=== PATIENT | female | born 1985 | race Caucasian/White ===

== ENCOUNTER 2020-03-29 14:54 | Emergency (ER) | payer OTHER, SELFPAY ==
--- NOTE | 2020-03-29 18:03 | PC.NURSE ---
CALLED AT 1715. PT NOT IN [facility]. TRIAGE NURSE STATES CALLED ALSO AND NO RESPONSE. LWT.
== END 2020-03-29 18:22 | disposition left against medical advice (07) ==
PROVIDERS: Emergency Provider Emergency Medicine
DX: M79.603 Pain in arm, unspecified (principal)
CPT/HCPCS: 99281

== ENCOUNTER 2021-03-05 07:17 | Outpatient (REF) | payer OTHER, SELFPAY ==
--- NOTE | ~2021-03-05 | XR_ITS ---
EXAMINATION: XR SHOULDER, RIGHT CLINICAL INFORMATION: Pain in the shoulder COMPARISON: None TECHNIQUE: Two views of the right shoulder. FINDINGS: No fracture or dislocation. The glenohumeral joint is well aligned. The acromioclavicular joint is intact. The visualized lung is clear. The visualized ribs are intact. XR/XR shoulder RT min 2V IMPRESSION: Normal right shoulder.
== END 2021-03-05 07:18 | disposition home or self-care (01) ==
LOC: HO.HOSX 07:17
PROVIDERS: Visit Provider Physician Assistant
DX: M75.21 Bicipital tendinitis, right shoulder (principal)
CPT/HCPCS: 73030; 99202

== ENCOUNTER 2021-03-10 11:16 | Outpatient (REF) | payer OTHER, SELFPAY ==
--- NOTE | ~2021-03-10 | XR_ITS ---
EXAMINATION: XR KNEE, RIGHT CLINICAL INFORMATION: Right knee pain. COMPARISON: February 05, 2009 TECHNIQUE: Four views of the right knee. FINDINGS: There is no evidence of acute fracture or dislocation of the right knee. No right knee effusion. Right knee joint spaces are maintained. Prominent patella spur site of insertion of quadriceps tendon present. XR/XR knee RT 4V IMPRESSION: Patella spur. Otherwise unremarkable right knee study.
== END 2021-03-10 11:17 | disposition home or self-care (01) ==
LOC: HO.HMGCX 11:16
PROVIDERS: PCP Internal Medicine; Visit Provider Internal Medicine
DX: M25.561 Pain in right knee (principal)
CPT/HCPCS: 73564

== ENCOUNTER 2021-03-23 16:33 | Outpatient (REF) | payer OTHER, SELFPAY ==
--- NOTE | ~2021-03-23 | MR_ITS ---
EXAMINATION: MR SHOULDER WITHOUT CONTRAST, RIGHT CLINICAL INFORMATION: Right shoulder pain radiating into biceps. COMPARISON: Right shoulder radiographs dated 03/05/2021. TECHNIQUE: MRI of the shoulder without contrast was performed on a high-field scanner. FINDINGS: ROTATOR CUFF: There is somewhat linear, lobulated low T1/T2 signal within the distal aspect of the supraspinatus tendon measuring 0.4 x 0.4 x 0.9 cm (axial image 09/23), consistent with calcific tendinitis. Mild associated tendinosis without a measurable tendon defect. No muscle atrophy or fatty infiltration. BICEPS: Normal. CORACOACROMIAL ARCH: The undersurface of the acromion is flat with no subacromial spur. The acromioclavicular joint is normal. LABRUM/CAPSULE: Normal. GLENOHUMERAL JOINT/MARROW: Normal. MR/MR shoulder RT wo con IMPRESSION: Mild distal supraspinatus calcific tendinitis with associated tendinosis. No measurable tendon defect.
== END 2021-03-23 16:34 | disposition home or self-care (01) ==
LOC: HO.MRI 16:33
PROVIDERS: Visit Provider Physician Assistant
DX: M25.611 Stiffness of right shoulder, not elsewhere classified (principal); M25.511 Pain in right shoulder; M75.21 Bicipital tendinitis, right shoulder
CPT/HCPCS: 73221

== ENCOUNTER → 2021-04-05 10:29 | Outpatient (BNVA) | payer OTHER, SELFPAY | PROVIDERS: PCP Internal Medicine; Visit Provider Physician Assistant | DX: M75.101 Unspecified rotator cuff tear or rupture of right shoulder, not specified as traumatic (principal); M75.31 Calcific tendinitis of right shoulder | CPT/HCPCS: 99212; J1040 ==

== ENCOUNTER → 2021-04-06 15:35 | Outpatient (BNVA) | payer OTHER, MEDICAID, SELFPAY | PROVIDERS: PCP Internal Medicine; Visit Provider Advanced Practice Midwife ==

== ENCOUNTER → 2021-04-08 10:45 | Outpatient (BNVA) | payer OTHER, MEDICAID, SELFPAY | PROVIDERS: Visit Provider Orthopaedic Surgery ==

== ENCOUNTER 2021-04-28 11:00 | Outpatient (RCR) | payer OTHER, MEDICAID, SELFPAY ==
--- NOTE | 2021-04-21 14:57 | MHC.PT.EP ---
[facility] [place] Office [place] Office [place] Office [address] Rubens Cardona [address] [phone] F: [phone] F: [phone] F: [phone] F: [phone] Physical Therapy Plan of Care Date of Evaluation: Date of Surgery: n/a Diagnosis: calcific tendonitis of R shoulder Assessment: Patient is a 36 year old female presenting to PT with complaints of pain in her R shoulder. Pt reports onset of pain began 02/17/2021 due to a lifting injury at work. She presents today with impairments in pain, R shoulder ROM, and R shoulder strength. 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 Pt expresses custodial goal of being pain free, and is motivated to work towards this in PT. Clinical presentation is somewhat limited due to pt refusing to complete certain portions of the exam however MRI findings are most consistent with signs and sx associated with calcific tendonitis and pt will benefit from skilled PT to address the following problems and impairments noted upon evaluation: pain, R shoulder ROM, and R shoulder strength. These problems limit the patient with the following functional activities: reaching, lifting, ADLs, work. The prescribed treatment plan of care is medically necessary. Co-morbidities of none were identified and taken into considerations of plan of care. Pt was educated on HEP, role of PT, prognosis, POC. Frequency and Duration: The patient will be seen 2 x week x 4 weeks Short Term Goals: Pt will demonstrate improved AROM of shoulder in all directions by 20 degrees in 2 weeks. Pt will demonstrate reduced pain at rest to <5/10 in 2 weeks for improved QOL. Pt will demonstrate active muscle contraction against resistance in 2 weeks. Custodial Goals: Pt will demonstrate improved SPADI score by 13 points in 4 weeks for improved tolerance to functional mobility. Pt will demonstrate ability to reach and lift with pain<3/10 in 4 weeks for return to PLOF. Pt will demonstrate ability to complete ADLs with min to no pain in 4 weeks for return to PLOF. Treatment Plan: Modalities to reduce pain, spasms and effusion. Manual therapy to restore motion and function. Therapeutic exercise to improve strength and flexibility. Neuromuscular re-education for posture and balance. Therapeutic activities to return to functional activities of daily living. Electronically signed by: Charlene Balderas, PT, DPT, ATC Please sign and return to therapist. Thank you for your referral.
--- NOTE | 2021-05-12 11:34 | MHC.PT.DC ---
[facility] [place] Office [place] Office [place] Office [address] Rubens Cardona [address] [phone] F: [phone] F: [phone] F: [phone] F: [phone] Physical Therapy Discharge Report Diagnosis: calcific tendonitis of R shoulder Date of Surgery: n/a Date of Evaluation: 04/21/21 Date of Discharge: 05/12/21 Treatments to Date: 2 Cancellations to Date: 3 No Shows to Date: 2 Discharge Status: Visit Non-compliance Discharge Summary: Pt has failed to comply with [facility] attendance policy and no showed her last 2 scheduled appts. Pt status currently unknown at this time. Electronically signed by: Charlene Balderas, PT, DPT, ATC Please sign and return to therapist. Thank you for your referral.
== END 2021-05-12 11:34 | disposition home or self-care (01) ==
LOC: HO.PTCHIC 11:00
PROVIDERS: PCP Internal Medicine; Visit Provider Physician Assistant
DX: M22.2X1 Patellofemoral disorders, right knee (principal); M75.31 Calcific tendinitis of right shoulder; M75.101 Unspecified rotator cuff tear or rupture of right shoulder, not specified as traumatic
CPT/HCPCS: 97110; 97161

== ENCOUNTER → 2021-05-17 09:35 | Outpatient (BNVA) | payer OTHER, MEDICAID, SELFPAY | PROVIDERS: PCP Internal Medicine; Visit Provider Physician Assistant | DX: M75.31 Calcific tendinitis of right shoulder (principal) | CPT/HCPCS: 99212 ==

== ENCOUNTER 2021-06-03 10:00 | Outpatient (RCR) | payer OTHER, MEDICAID, SELFPAY ==
--- NOTE | 2021-05-19 10:59 | MHC.PT.EP ---
[facility] [place] Office [place] Office [place] Office [address] [phone] F: [phone] F: [phone] F: [phone] F: [phone] Physical Therapy Plan of Care Date of Evaluation: Date of Surgery: n/a Diagnosis: R shoulder pain/tendinitis Assessment: Patient is a 36 year old R handed female who presents with s/s consistent with R shoulder pain, tendinitis. 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 Patient past medical history is fairly unremarkable. Current impairments include pain, posture, ROM, strength, activity tolerance and functional mobility. Functional limitations include decreased ability to use RUE for all functional activities. Patient is motivated with good rehab potential. Skilled PT will address impairments and functional limitations in order to achieve goals. Frequency and Duration: The patient will be seen 2x/week for 5 weeks Short Term Goals: I with HEP - 2 weeks AROM flexion to 40, ER to 15, Abd to 25 - 2 weeks Able to participate in UBE - 3 weeks Water Technician Goals: Flex/ABd > 90 - 5 weeks ER/IR arc to 90 - 5 weeks SPADI 80 or less - 5 weeks Treatment Plan: Modalities to reduce pain, spasms and effusion. Manual therapy to restore motion and function. Therapeutic exercise to improve strength and flexibility. Neuromuscular re-education for posture and balance. Therapeutic activities to return to functional activities of daily living. Electronically signed by: Chandler Driver, PT Please sign and return to therapist. Thank you for your referral.
--- NOTE | 2021-12-23 08:51 | MHC.PT.DC ---
[facility] [place] Office [place] Office [place] Office [address] Rubens Cardona [address] [phone] F: [phone] F: [phone] F: [phone] F: [phone] Physical Therapy Discharge Report Diagnosis: R shoulder pain/tendinitis Date of Surgery: n/a Date of Evaluation: 05/19/21 Date of Discharge: 07/26/21 Treatments to Date: 3 Cancellations to Date: No Shows to Date: Discharge Status: Patient Elected to Stop Discharge Summary: 06/03: Pt presents with protective posturing; she reports she feels worse when she leaves therapy and was reminded that she has only has her initial evaluation and one treatment session. Pt encouraged to attend therapy w/o difficult to remove UE clothing for modalities trial NV for pain management. Poor macario for activities continues though weight shifting ROM PROM is more tolerable than pendulum, felipa. Pt reports she has tried her home exercises though could not remember them. Affed weight shifting Prom flexion and abd as well as scap retract iso to HEP. Pt reports ortho follow up in 2 weeks. 05/26/21: low ex tolerance due to perceived pain. educated in potential response to ex. continue to progress as tolerated. Patient is a 36 year old R handed female who presents with s/s consistent with R shoulder pain, tendinitis. 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 Patient past medical history is fairly unremarkable. She currently presents with s/s to allodynia. Current impairments include pain, posture, ROM, strength, activity tolerance and functional mobility. Functional limitations include decreased ability to use RUE for all functional activities. Patient is motivated with good rehab potential. Skilled PT will address impairments and functional limitations in order to achieve goals. Electronically signed by: Chandler Driver, PT Please sign and return to therapist. Thank you for your referral.
== END 2021-12-23 08:52 | disposition home or self-care (01) ==
LOC: HO.PTCHIC 10:00
PROVIDERS: PCP Internal Medicine; Visit Provider Physician Assistant
DX: M75.31 Calcific tendinitis of right shoulder (principal); M75.101 Unspecified rotator cuff tear or rupture of right shoulder, not specified as traumatic
CPT/HCPCS: 97110; 97161

== ENCOUNTER → 2021-06-14 10:51 | Outpatient (BNVA) | payer OTHER, MEDICAID, SELFPAY | PROVIDERS: PCP Internal Medicine; Visit Provider Orthopaedic Surgery | DX: M75.31 Calcific tendinitis of right shoulder (principal) | CPT/HCPCS: 99212 ==

== ENCOUNTER 2022-10-21 12:34 | Outpatient (AMB) | payer OTHER, SELFPAY ==
--- NOTE | 2022-10-21 12:36 | A.OFFPC_ITS ---
Vital Signs 10/21/22 12:39 Height 5 ft 1 in Weight 111 lb BMI 21.0 BP 92/54 L Blood Pressure Location Lt brachial Position Sitting Pulse 75 Pulse Source Pulse Oximeter Pulse Oximetry (%) 96 Oxygen Delivery Method Room Air Intake Visit Reasons: right side Back Pain Allergies lamotrigine [From LAMICTAL] Allergy (Severe, Verified 10/21/22 12:39) HIVES Medication List - Last Reconciled 10/21/22 by Tori Vines MD No Known Home Meds Tobacco use date assessed: 10/21/22 Dental Screening Dental Screen Date: 10/21/22 Did you have a dental visit in the last 12 months?: Yes Did you have a dental problem in the last 6 months where you did not have access to dental care?: No Was dental information given to patient?: Patient has dentist HPI right side Back Pain HPI Details Patient is a 37-year-old female who was last seen last year came in today for an acute problem Patient has been having pain lower back on the right side for the past few days when she lays down at night. Pain is nonradiating. On examination she is tender over right sacroiliac joint I have ordered x-ray of her joint Patient has not taken any pain medications she has Aleve and ibuprofen at home she will start taking either for next 2 weeks and get back to me. If not better we will order physical therapy. 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 How often do you have a drink containing alcohol?: Monthly or less 2. How many drinks containing alcohol do you have on a typical day when you are drinking?: 1 or 2 Total Score: 1 Score Reviewed/Action Taken: Yes CATHY-7 AMB Questionnaire CATHY-7 Date CATHY - 7 assessed: 03/10/21 Source: Developed by DrsOlga Galindo, Ana Laura Alberts, Damian Hagen and colleagues, with an educational lincoln from [employer]. Review of Systems Const All systems reviewed & are unremarkable except as noted in HPI and below Physical exam (Primary Care) Vital Signs: Last Vital Signs Pulse 75 10/21/22 12:39 BP 92/54 L 10/21/22 12:39 Pulse Ox 96 10/21/22 12:39 Oxygen Delivery Method Room Air 10/21/22 12:39 BMI result Body Mass Index 21.0 Tobacco/Smoking Status: Tobacco use Status Tobacco use date assessed 10/21/22 10/21/22 12:38 Patient Tobacco Use Status Former Tobacco user 10/21/22 12:38 Tobacco use type Cigarette 10/21/22 12:38 e-Cigarette/Vaping Use Never Used 10/21/22 12:38 Thrive Assessment: Date of Thrive Assessment Date Thrive assessed 03/10/21 10/21/22 12:38 Const General: no acute distress Orientation/consciousness: patient oriented x3 Eyes General: appearance normal, both eyes and all related structures Resp Effort & Inspection: normal respiratory effort and able to speak in complete sentences Auscultation: clear to auscultation bilaterally Back/Spine/Pelvis Back/spine/pelvis image: 1. Tender to pressure, range of motion intact right leg negative bilateral neuro nonfocal Neuro General: patient oriented x3 Psych Mental Status: mental status grossly normal Assessment and Plan Assessment & Plan (1) Sacroiliitis: Code(s): M46.1 - Sacroiliitis, not elsewhere classified Plan Patient is a 37-year-old female who was last seen last year came in today for an acute problem Patient has been having pain lower back on the right side for the past few days when she lays down at night. Pain is nonradiating. On examination she is tender over right sacroiliac joint I have ordered x-ray of her joint Patient has not taken any pain medications she has Aleve and ibuprofen at home she will start taking either for next 2 weeks and get back to me. If not better we will order physical therapy. Orders: Orders XR sacroiliac joint min 3V Today M46.1 - Sacroiliitis, not elsewhere classified Coding Level of Care Code Est Pt Level 3 (42322) Diagnoses Sacroiliitis M46.1
[2022-10-21 12:39] VITALS: BP 92/54; PULSE 75; O2SAT 96; BMI 21.0
== END 2022-10-21 13:15 | disposition home or self-care (01) ==
PROVIDERS: PCP Internal Medicine; Visit Provider Internal Medicine
DX: M46.1 Sacroiliitis, not elsewhere classified (principal)
CPT/HCPCS: 99213

== ENCOUNTER 2022-10-21 12:53 | Outpatient (REF) | payer OTHER, SELFPAY ==
--- NOTE | ~2022-10-21 | XR_ITS ---
EXAMINATION: XR SACROILIAC JOINTS CLINICAL INFORMATION: Sacroiliitis. COMPARISON: None available. TECHNIQUE: 3 views of the sacroiliac joints FINDINGS: No evidence of displaced fractures or malalignment. SI joints are symmetric with minimal associated sclerosis. No erosive changes. No abnormal soft tissue calcifications. IUD noted in the pelvis. XR/XR sacroiliac joint min 3V IMPRESSION: 1. No acute fractures or malalignment. 2. Symmetric SI joints with minimal sclerosis.
== END 2022-10-21 12:54 | disposition home or self-care (01) ==
LOC: HO.HMGCX 12:53
PROVIDERS: PCP Internal Medicine; Visit Provider Internal Medicine
DX: M46.1 Sacroiliitis, not elsewhere classified (principal)
CPT/HCPCS: 72202

== ENCOUNTER 2023-05-04 14:43 | Outpatient (AMB) | payer OTHER, SELFPAY ==
[2023-05-04 14:52] VITALS: BP 116/68; PULSE 71; TEMP 36.1; O2SAT 96; BMI 23.4
--- NOTE | 2023-05-04 14:52 | MHC.OFFWIV ---
Intake Vital Signs 05/04/23 14:52 Height 5 ft 1 in Weight 124 lb BMI 23.4 BP 116/68 Blood Pressure Location Lt brachial Position Sitting Pulse 71 Pulse Source Pulse Oximeter Temp 97.0 F Temp Source Temporal Artery Scan Pulse Oximetry (%) 96 Oxygen Delivery Method Room Air Intake Visit Reasons: EP 4 days pain RT breast Intake Note: pt is here today for pain rt breast started 4 days ago Patient Tobacco Use Status: Former Tobacco user Allergies lamotrigine [From LAMICTAL] Allergy (Severe, Verified 05/04/23 14:53) HIVES Do you need a note to return to daycare/school/sports/work: Yes HPI HPI Comments History of Present Illness Details 38 y/o female patient presents to walk in clinic with c/o right breast pain x 4 days now. Describes the pain as sharp on/off. Denies lumps or lesions. Denies CP, SOB or wheezing. Reports h/o right breast cyst with WNL Mammo/Ultrasound. 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 No tenderness on palpation. Chest palpation & inspection: normal inspection of the chest Breast/axilla inspection: normal inspection of the breasts and normal inspection of the axillae Breast/axilla palpation: normal palpation of the breasts, normal palpation of the axillae and no axillary lymphadenopathy Assessment & Plan Assessment & Plan (1) Breast pain, right: Code(s): N64.4 - Mastodynia Plan: - Apply heat pads for relief - Acetaminophen for pain relief - Will continue to monitor - h/o right breast cyst - No h/o breast CA Medications: New acetaminophen 1,000 mg (2 x 500 mg) PO Q6H PRN 30 caps 0RF Right breast pain N64.4 - Mastodynia Coding Level of Care Code Est Pt Level 3 (82732) Diagnoses Breast pain, right N64.4 Time Spent (min) 15
== END 2023-05-04 15:57 | disposition home or self-care (01) ==
PROVIDERS: PCP Internal Medicine; Visit Provider Nurse Practitioner Family
DX: N64.4 Mastodynia (principal)
CPT/HCPCS: 99213

== ENCOUNTER 2023-07-14 14:48 | Outpatient (AMB) | payer OTHER, SELFPAY ==
--- NOTE | 2023-07-14 14:46 | MHC.PC.OV ---
Intake Visit Reasons: Lower back pain radiating into legs [phone] Allergies lamotrigine [From LAMICTAL] Allergy (Severe, Verified 07/14/23 14:46) HIVES Medication List - Last Reconciled 07/14/23 by Tori Vines MD acetaminophen 1,000 mg (2 x 500 mg) PO Q6H PRN diclofenac sodium mg PO Tobacco use date assessed: 07/14/23 Dental Screening Dental Screen Date: 07/14/23 Did you have a dental visit in the last 12 months?: Yes Did you have a dental problem in the last 6 months where you did not have access to dental care?: No Was dental information given to patient?: Patient has dentist HPI Lower back pain radiating into legs [phone] HPI Details This is a telemedicine video conference Patient is 38-year-old female who has been having back pain off and on since January of last year Patient says that initially it was at night mostly and she was getting some relief with ibuprofen And then it started to get worse and started radiating to her right leg To the point that she is now having difficulty walking and feeling weak in her right leg with tingling in her foot Patient says that symptoms are getting worse and she is not even able to do much at home She was in emergency room yesterday [facility], After evaluation patient was discharged with a script of diclofenac that she is taking without any relief Patient says that x-rays were not done I have ordered x-ray as well as MRI of lumbar spine I have also sent Medrol Dosepak for the patient Further management after the imaging reports There is no bowel or bladder issues [facility] Medical History Ovarian cyst Family History Other Substance use disorder Social History Housing: House Patient Tobacco Use Status: Former Tobacco user Tobacco use type: Cigarette Years Smoked: 13 years e-Cigarette/Vaping Use: Never Used Current occupational status: employed 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 Miguel Galindo, Ana Laura Alberts, Damian Hagen and colleagues, with an educational lincoln from [employer]. Review of Systems Const Denies chills and Denies fever(s) ENT Denies epistaxis and Denies nasal discharge Card Denies chest pain Resp Denies chest congestion, Denies cough and Denies hemoptysis GI Denies diarrhea and Denies nausea Skin/Breast Denies rash Neuro Reports no additional complaints Psych Reports no additional complaints Endo Reports no additional complaints Physical exam (Primary Care) Tobacco/Smoking Status: Tobacco use Status Tobacco use date assessed 07/14/23 07/14/23 14:50 Patient Tobacco Use Status Former Tobacco user 07/14/23 14:47 Tobacco use type Cigarette 07/14/23 14:47 e-Cigarette/Vaping Use Never Used 07/14/23 14:47 Thrive Assessment: Date of Thrive Assessment Date Thrive assessed 03/10/21 07/14/23 14:47 Telehealth Telehealth Location of provider rendering services: practice address Location of patient: address on file Patient Identification confirmed using: Name, : Yes Telehealth method: video Patient verbally consented to treatment: Yes Patient verbally consented to billing insurance company: Yes Patient informed of any privacy concerns related to visit: Yes Assessment and Plan Assessment & Plan (1) Right lumbar radiculitis: Code(s): M54.16 - Radiculopathy, lumbar region (2) Weakness of right leg: Code(s): R29.898 - Other symptoms and signs involving the musculoskeletal system (3) Paresthesia of right leg: Code(s): R20.2 - Paresthesia of skin Plan This is a telemedicine video conference Patient is 38-year-old female who has been having back pain off and on since January of last year Patient says that initially it was at night mostly and she was getting some relief with ibuprofen And then it started to get worse and started radiating to her right leg To the point that she is now having difficulty walking and feeling weak in her right leg with tingling in her foot Patient says that symptoms are getting worse and she is not even able to do much at home She was in emergency room yesterday [facility], After evaluation patient was discharged with a script of diclofenac that she is taking without any relief Patient says that x-rays were not done I have ordered x-ray as well as MRI of lumbar spine I have also sent Medrol Dosepak for the patient Further management after the imaging reports There is no bowel or bladder issues Orders: Orders XR lumbar spine 2-3V Today M54.16 - Radiculopathy, lumbar region, R20.2 - Paresthesia of skin, R29.898 - Other symptoms and signs involving the musculoskeletal system MR lumbar spine wo con Today M54.16 - Radiculopathy, lumbar region, R20.2 - Paresthesia of skin, R29.898 - Other symptoms and signs involving the musculoskeletal system Medications: New methylprednisolone (Medrol (Clay)) PO PER PKG DIR 21 ea 0RF 6 days Coding Level of Care Code Tele Est Pt Level 4 (54543) Diagnoses Right lumbar radiculitis M54.16 Weakness of right leg R29.898 Paresthesia of right leg R20.2 Time Spent (min) 30 Comment Reviewing hospital note/[id number] with patient/charting/ordering meds/ordering imaging
== END 2023-07-14 16:34 | disposition home or self-care (01) ==
LOC: HO.HMGC 14:48
PROVIDERS: PCP Internal Medicine; Visit Provider Internal Medicine
DX: M54.16 Radiculopathy, lumbar region (principal); R29.898 Other symptoms and signs involving the musculoskeletal system; R20.2 Paresthesia of skin
CPT/HCPCS: 99214

== ENCOUNTER 2023-07-14 15:46 | Outpatient (REF) | payer OTHER, SELFPAY ==
--- NOTE | ~2023-07-14 | XR_ITS ---
EXAMINATION: XR LUMBOSACRAL SPINE CLINICAL INFORMATION: Radiculopathy. Lumbar region. COMPARISON: None available. TECHNIQUE: Three views of the lumbosacral spine. FINDINGS: 5 nonrib-bearing lumbar vertebral bodies are visualized. Alignment is within normal limits. Lumbar vertebral body heights and disc spaces are well-maintained. Sacroiliac joints are symmetric. IUD projects over the midline pelvis. Suspected 6 mm right renal calculus. XR/XR lumbar spine 2-3V IMPRESSION: 1. Unremarkable radiographs of the lumbar spine. 2. Suspected 6 mm right renal calculus.
== END 2023-07-14 15:47 | disposition home or self-care (01) ==
LOC: HO.HMGCX 15:46
PROVIDERS: PCP Internal Medicine; Visit Provider Internal Medicine
DX: M54.16 Radiculopathy, lumbar region (principal); R29.898 Other symptoms and signs involving the musculoskeletal system; R20.2 Paresthesia of skin
CPT/HCPCS: 72100

== ENCOUNTER 2023-07-20 08:35 | Outpatient (AMB) | payer OTHER, SELFPAY ==
--- NOTE | 2023-07-20 09:28 | A.OFFPC_ITS ---
Intake Visit Reasons: Back pain~ [phone] Allergies lamotrigine [From LAMICTAL] Allergy (Severe, Verified 07/20/23 09:28) HIVES diclofenic Adverse Reaction (Uncoded 07/20/23 10:12) Abdominal Pain Medication List - Last Reconciled 07/20/23 by Tori Vines MD acetaminophen 1,000 mg (2 x 500 mg) PO Q6H PRN methylprednisolone (Medrol (Clay)) PO PER PKG DIR 6 days Tobacco use date assessed: 07/14/23 Dental Screening Dental Screen Date: 07/14/23 HPI Back pain~ [phone] HPI Details Patient is 38-year-old female this is a follow-up appointment on back pain She continued to have pain in her back radiating to right leg Patient had x-ray of her back done, which showed 6 mm right-sided renal calculi I have placed a referral for her to see urologist, meanwhile she is to push lot of fluids She could not take diclofenac, as it started causing abdominal pain and sweating However she can not tolerate ibuprofen which is not helping she is also taking Tylenol I have sent tramadol if T mg patient may take that up to 2 times a day at least 8 hours apart MRI order is still in the system and it is being worked on. 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 Miguel Galindo, Ana Laura Damian Bynum and colleagues, with an educational lincoln from [employer]. Review of Systems Const Denies chills and Denies fever(s) ENT Denies epistaxis and Denies nasal discharge Card Denies chest pain Resp Denies chest congestion, Denies cough and Denies hemoptysis GI Denies diarrhea and Denies nausea Skin/Breast Denies rash Neuro Reports no additional complaints Psych Reports no additional complaints Endo Reports no additional complaints Physical exam (Primary Care) Tobacco/Smoking Status: Tobacco use Status Tobacco use date assessed 07/14/23 07/20/23 09:31 Patient Tobacco Use Status Former Tobacco user 07/20/23 09:31 Tobacco use type Cigarette 07/20/23 09:31 e-Cigarette/Vaping Use Never Used 07/20/23 09:31 Thrive Assessment: Date of Thrive Assessment Date Thrive assessed 03/10/21 07/20/23 09:31 Telehealth Telehealth Location of provider rendering services: practice address Location of patient: address on file Patient Identification confirmed using: Name, : Yes Telehealth method: video Patient verbally consented to treatment: Yes Patient verbally consented to billing insurance company: Yes Patient informed of any privacy concerns related to visit: Yes Assessment and Plan Assessment & Plan (1) Renal calculus, right: Code(s): N20.0 - Calculus of kidney (2) Right lumbar radiculitis: Code(s): M54.16 - Radiculopathy, lumbar region (3) Weakness of right leg: Code(s): R29.898 - Other symptoms and signs involving the musculoskeletal system (4) Paresthesia of right leg: Code(s): R20.2 - Paresthesia of skin Plan Patient is 38-year-old female this is a follow-up appointment on back pain She continued to have pain in her back radiating to right leg Patient had x-ray of her back done, which showed 6 mm right-sided renal calculi I have placed a referral for her to see urologist, meanwhile she is to push lot of fluids She could not take diclofenac, as it started causing abdominal pain and sweating However she can not tolerate ibuprofen which is not helping she is also taking Tylenol I have sent tramadol if T mg patient may take that up to 2 times a day at least 8 hours apart MRI order is still in the system and it is being worked on. Orders: Referrals Urology Referral N20.0 - Calculus of kidney Medications: New tramadol 50 mg PO BID PRN 30 tabs 0RF pain 15 days Coding Level of Care Code Tele Est Pt Level 4 (49365) Diagnoses Renal calculus, right N20.0 Right lumbar radiculitis M54.16 Weakness of right leg R29.898 Paresthesia of right leg R20.2 Time Spent (min) 30 Comment [id number] with the patient, charting, reviewing imaging, placing referral
== END 2023-07-20 10:34 | disposition home or self-care (01) ==
LOC: HO.HMGC 08:35
PROVIDERS: PCP Internal Medicine; Visit Provider Internal Medicine
DX: N20.0 Calculus of kidney (principal); M54.16 Radiculopathy, lumbar region; R29.898 Other symptoms and signs involving the musculoskeletal system; R20.2 Paresthesia of skin
CPT/HCPCS: 99214

== ENCOUNTER 2023-08-10 13:56 | Outpatient (AMB) | payer OTHER, SELFPAY ==
--- NOTE | 2023-08-10 14:02 | A.OFFVIS_ITS ---
Intake Visit Reasons: Kidney stone Intake Note: New patient is present for Kidney stone Patient states that she has been having bad lower back pain that radiates pain down her leg. She states that this started last October 2022. Xray was obtained at that time and no stone was present. Patient states that she had another Xray done last month that showed Stone in her Spine. X-Ray indicated Suspected 6MM stone renal calculus Allergies lamotrigine [From LAMICTAL] Allergy (Severe, Verified 08/10/23 22:10) HIVES diclofenic Adverse Reaction (Uncoded 08/10/23 22:10) Abdominal Pain Medication List - Last Reconciled 08/10/23 by NABEEL Baltazar acetaminophen 1,000 mg (2 x 500 mg) PO Q6H PRN methylprednisolone (Medrol (Clay)) PO PER PKG DIR 6 days pyridoxine (vitamin B6) 100 mg PO DAILY 90 days tramadol 50 mg PO BID PRN 15 days HPI Comments Details: Inna is a 38-year-old female patient of . She presents to the office today as a new patient for nephrolithiasis. In discussion with the patient today she reports having followed up. The PCP for ongoing lumbar sacral pain she has been experiencing at which time a lumbosacral x-ray was ordered for further assessment evaluation. These results reviewed with the patient today. Suspected 6 mm right renal calculus is noted. During assessment evaluation of the patient today no CVA tenderness noted bilaterally. Pain upon palpation of right-sided sacral area. She discusses feeling pain radiates down to her right leg. Discussed typical findings of nephrolithiasis. Discussed further intervention with ESWL versus surveillance monitoring. She otherwise denies any bothersome urinary issues or concerns. She denies urinary urgency, urinary frequency, incontinence, nocturia, hematuria, dysuria, foul smelling urine, changes to urinary stream, flank pain, fever, and or chills. She is happy with her current voiding parameters. In office urinalysis results reviewed with the patient today. Discussed potential causes of nephrolithiasis. She denies any previous history of nephrolithiasis. She otherwise offers no other issues or concerns at this time. 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 Cognitive needs: No Hearing needs: No Vision needs: Yes Review of Systems Const All systems reviewed & are unremarkable except as noted in HPI and below Physical Exam Const General: cooperative, healthy appearing, comfortable, no acute distress, well developed, alert and awake Orientation/consciousness: patient oriented x3 Limitations: no limitations HEENT Head: Yes normal to inspection, Yes normocephalic and Yes atraumatic Ears: hearing grossly normal bilaterally Eyes General: appearance normal, both eyes and all related structures Neck Neck: Yes normal visual inspection and Yes trachea midline Chest Chest palpation & inspection: normal inspection of the chest Resp Effort & Inspection: normal respiratory effort and able to speak in complete sentences Cardio Rate: regular rate GI Inspection: Yes normal to inspection General: Yes no CVA tenderness Back/Spine/Pelvis Back: no CVA tenderness Skin General skin exam: no rashes or lesions noted Neuro General: patient oriented x3 Extrem General: Yes normal to inspection Psych Appearance: grossly normal and well kempt Mental Status: mental status grossly normal Speech and movement: Normal speech and movement present and Clear speech present Affect: normal affect Attitude: cooperative Thought process: Normal thought process present Thought content: Normal thought content present Insight: Fair insight present (Psych) Judgement: Fair judgement present (Psych) Results AMB Urinalysis, Automated UA Leukoctes 15 April/uL Last Edit by BYRON Soni on 08/10/23 14:15 UA Nitrite Negative Last Edit by BYRON Soni on 08/10/23 14:15 UA Urobilinogen 0.2 mg/dL Last Edit by BYRON Soni on 08/10/23 14:1 5 UA Protein 15 mg/dL Last Edit by BYRON Soni on 08/10/23 14:15 UA pH 6.0 Last Edit by Bertha Torres, RMA on 08/10/23 14:15 UA Blood 0 Lizandro/uL Last Edit by Berthaaishwarya Torres, RMA on 08/10/23 14:15 UA Specific [place] 1.025 Last Edit by Bertha Torres, RMA on 08/10/23 14: 15 UA Ketone Positive Last Edit by Bertha Torres, RMA on 08/10/23 14:15 UA Bilirubin 1 mg/dL Last Edit by Bertha Torres, RMA on 08/10/23 14:15 UA Glucose 0 mg/dL Last Edit by Bertha Torres, A on 08/10/23 14:15 Results Reviewed Results Reviewed: Laboratory Last Values Urine pH (Auto) 6.0 08/10/23 14:14 Specific [place] (Auto) 1.025 08/10/23 14:14 Urine Protein (Auto) 15 mg/dL 08/10/23 14:14 Glucose (UA)(Auto) 0 mg/dL 08/10/23 14:14 Urine Ketones (Auto) Positive 08/10/23 14:14 Urine Blood (Auto) 0 Lizandro/uL 08/10/23 14:14 Urine Nitrite (Auto) Negative 08/10/23 14:14 Urine Bilirubin (Auto) 1 mg/dL 08/10/23 14:14 Urine Urobilinogen (Auto) 0.2 mg/dL 08/10/23 14:14 Leukocyte Esterase (Auto) 15 April/uL 08/10/23 14:14 Date of Service: 07/14/23 EXAMINATION: XR LUMBOSACRAL SPINE FINDINGS: 5 nonrib-bearing lumbar vertebral bodies are visualized. Alignment is within normal limits. Lumbar vertebral body heights and disc spaces are well-maintained. Sacroiliac joints are symmetric. IUD projects over the midline pelvis. Suspected 6 mm right renal calculus. IMPRESSION: 1. Unremarkable radiographs of the lumbar spine. 2. Suspected 6 mm right renal calculus. Assessment & Plan Assessment & Plan (1) Renal calculus, right: Code(s): N20.0 - Calculus of kidney Category: Medical Plan In office urinalysis results reviewed with the patient today. Recent imaging results reviewed with the patient today; as noted above. Discussed at length potential causes of nephrolithiasis. Discussed further surgical intervention regarding nephrolithiasis to include surveillance monitoring verses ESWL Information provided All questions were answered Discussed, educated, and stressed the importance of drinking plenty of water daily. Discussed adding 1 oz of lemon juice to water daily. Start vitamin B6 as prescribed. Will obtain CT KUB in 3 months Follow-up in 3 months with imaging to be completed prior; or sooner with any issues, concerns, and or questions. Orders: Orders CT kidney stone 3 Months N20.0 - Calculus of kidney AMB Urinalysis Automated Today Z13.9 - Encounter for screening, unspecified Medications: New pyridoxine (vitamin B6) 100 mg PO DAILY 90 days 90 tabs 1RF Patient Instructions: The patient had an opportunity to ask questions regarding the treatment plan. All questions were answered. Physical exam, labs, and imaging were discussed and reviewed in detail. As well as risks, benefits, and discussion of treatment choices. No major barriers to understanding were identified. The patient expressed understanding and agreement with the above treatment plan. The patient was made aware they should contact our office by phone for worsening of their current condition, the appearance of new symptoms, or with any questions or concerns. Compliance is encouraged with any medications and follow up testing that is ordered. It is a privilege to be allowed the opportunity to participate in? your urological care.? Again, if you have any questions or concerns If you have any questions or concerns please do not hesitate to contact me. The office is [phone]. This note is constructed using voice recognition software. While every effort has been made to ensure accuracy public service director errors may have been included. Yours sincerely, NABEEL Baltazar Coding Level of Care Code New Pt Level 4 (40022) Diagnoses Renal calculus, right N20.0
== END 2023-08-10 14:39 | disposition home or self-care (01) ==
PROVIDERS: PCP Internal Medicine; Visit Provider Nurse Practitioner Family
DX: N20.0 Calculus of kidney (principal); Z13.9 Encounter for screening, unspecified
CPT/HCPCS: 99204

== ENCOUNTER → 2023-08-10 13:56 | Outpatient (BNVA) | payer OTHER, SELFPAY | PROVIDERS: PCP Internal Medicine; Visit Provider Nurse Practitioner Family | DX: N20.0 Calculus of kidney (principal) | CPT/HCPCS: 81003; 99202 ==

== ENCOUNTER 2023-08-11 11:07 | Outpatient (AMB) | payer OTHER, SELFPAY ==
[2023-08-11 11:16] VITALS: BP 124/70; PULSE 82; O2SAT 99; BMI 23.9
--- NOTE | 2023-08-11 11:16 | A.OFFPC_ITS ---
Vital Signs 3 08/11/23 11:16 Height 5 ft 1 in Weight 126 lb 8 oz BMI 23.9 BP 124/70 Blood Pressure Location Lt brachial Position Sitting Pulse 82 Pulse Source Pulse Oximeter Pulse Oximetry (%) 99 Oxygen Delivery Method Room Air Intake Visit Reasons: Lump/mass Allergies lamotrigine [From LAMICTAL] Allergy (Severe, Verified 08/11/23 11:16) HIVES diclofenic Adverse Reaction (Uncoded 08/10/23 22:10) Abdominal Pain Medication List - Last Reconciled 08/11/23 by Tori Vines MD acetaminophen 1,000 mg (2 x 500 mg) PO Q6H PRN pyridoxine (vitamin B6) 100 mg PO DAILY 90 days Tobacco use date assessed: 08/11/23 Dental Screening Dental Screen Date: 08/11/23 Did you have a dental visit in the last 12 months?: Yes Did you have a dental problem in the last 6 months where you did not have access to dental care?: No Was dental information given to patient?: Patient has dentist HPI Lump/mass 2 HPI0 Details Patient is a 38-year-old female came in today to be due lump she found on right breast On examination she has 3 in x 2 in smooth lump right breast close to nipple 11 o'clock position without any discomfort I have ordered diagnostic mammogram and ultrasound She continued to have pain right lower back radiating to right leg with weakness in the leg and numbness in her toes Insurance has declined MRI Patient has already tried prednisone and physical therapy without any relief She has also seen urologist for incidental finding of renal calculi, and was told that her pain is unrelated to that. I have placed a referral for her to see [facility] for management. [facility] Medical History Ovarian cyst Surgical History History of arthroscopic surgery of shoulder Hx of umbilical hernia repair Hx of section Family History Other Substance use disorder Social History Housing: House Patient Tobacco Use Status: Former Tobacco user Tobacco use type: Cigarette Years Smoked: 13 years e-Cigarette/Vaping Use: Never Used Current occupational status: employed Current occupation: [employer] Cognitive needs: No Hearing needs: No Vision needs: Yes Questionnaire Thrive Questionnaire Date Thrive assessed: 03/10/21 AUDIT C Alcohol Use Questionnaire (AUDIT-C) 1. How often do you have a drink containing alcohol?: Monthly or less 2. How many drinks containing alcohol do you have on a typical day when you are drinking?: 1 or 2 3. How often do you have six or more drinks on one occasion?: Never Total Score: 1 Score Reviewed/Action Taken: Yes CATHY-7 AMB Questionnaire CATHY-7 Date CATHY - 7 assessed: 03/10/21 Source: Developed by Drs. Miguel Galindo, Ana Laura Alberts, Damian Hagen and colleagues, with an educational lincoln from [employer]. Review of Systems Const Denies chills and Denies fever(s) ENT Denies epistaxis and Denies nasal discharge Card Denies chest pain Resp Denies chest congestion, Denies cough and Denies hemoptysis GI Denies diarrhea and Denies nausea Skin/Breast Denies rash Neuro Reports no additional complaints Psych Reports no additional complaints Endo Reports no additional complaints Physical exam (Primary Care) Vital Signs: Last Vital Signs Pulse 82 08/11/23 11:16 BP 124/70 08/11/23 11:16 Pulse Ox 99 08/11/23 11:16 Oxygen Delivery Method Room Air 08/11/23 11:16 BMI result Body Mass Index 23.9 Tobacco/Smoking Status: Tobacco use Status Tobacco use date assessed 08/11/23 08/11/23 11:19 Patient Tobacco Use Status Former Tobacco user 08/11/23 11:19 Tobacco use type Cigarette 08/11/23 11:19 e-Cigarette/Vaping Use Never Used 08/11/23 11:19 Thrive Assessment: Date of Thrive Assessment Date Thrive assessed 03/10/21 08/11/23 11:19 Const General: cooperative, comfortable and no acute distress Orientation/consciousness: patient oriented x3 HENMT Head: Yes normocephalic Eyes General: appearance normal, both eyes and all related structures Neck Neck: Yes supple Chest Chest/axillae images: 2 1. 3 x 2 in round lump right breast 11:00 o'clock position nontender no discharge from nipples, no skin lesions, no lymphadenopathy Resp Effort & Inspection: normal respiratory effort, no cough and no stridor Cardio Rhythm: regular rhythm Heart sounds: S1 normal heart sound present and S2 normal heart sound present Skin General skin exam: turgor normal Neuro General: patient oriented x3, tone normal and moves all extremities Extrem Right lower extremity: no edema Left lower extremity: no edema Assessment and Plan Assessment & Plan (1) Breast lump on right side at 11 o'clock position: Code(s): N63.11 - Unspecified lump in the right breast, upper outer quadrant (2) Paresthesia of right leg: Code(s): R20.2 - Paresthesia of skin (3) Weakness of right leg: Code(s): R29.898 - Other symptoms and signs involving the musculoskeletal system (4) Right lumbar radiculitis: Code(s): M54.16 - Radiculopathy, lumbar region Plan Patient is a 38-year-old female came in today to be due lump she found on right breast On examination she has 3 in x 2 in smooth lump right breast close to nipple 11 o'clock position without any discomfort I have ordered diagnostic mammogram and ultrasound She continued to have pain right lower back radiating to right leg with weakness in the leg and numbness in her toes Insurance has declined MRI Patient has already tried prednisone and physical therapy without any relief She has also seen urologist for incidental finding of renal calculi, and was told that her pain is unrelated to that. I have placed a referral for her to see [facility] for management. Orders: Orders 2 MM tomosynthesis diagnostic BI Today N63.11 - Unspecified lump in the right breast, upper outer quadrant US breast RT complete Today N63.11 - Unspecified lump in the right breast, upper outer quadrant Referrals 2 Orthopedics Referral M54.16 - Radiculopathy, lumbar region, R20.2 - Paresthesia of skin, R29.898 - Other symptoms and signs involving the musculoskeletal system Coding Level of Care Code Est Pt Level 3 (72091) Diagnoses Breast lump on right side at 11 o'clock position N63.11 Paresthesia of right leg R20.2 Weakness of right leg R29.898 Right lumbar radiculitis M54.16
== END 2023-08-11 13:02 | disposition home or self-care (01) ==
PROVIDERS: PCP Internal Medicine; Visit Provider Internal Medicine
DX: N63.11 Unspecified lump in the right breast, upper outer quadrant (principal); R20.2 Paresthesia of skin; R29.898 Other symptoms and signs involving the musculoskeletal system; M54.16 Radiculopathy, lumbar region
CPT/HCPCS: 99213

== ENCOUNTER 2023-08-29 14:25 | Outpatient (REF) | payer OTHER, SELFPAY ==
--- NOTE | ~2023-08-29 | US_ITS ---
EXAMINATION: MM DIAGNOSTIC DIGITAL BREAST TOMOSYNTHESIS, BILATERAL US BREAST LIMITED, RIGHT MAMMOGRAPHY: CLINICAL INFORMATION: Patient complains of a lump in the upper outer quadrant of the right breast. COMPARISON: Mammography: This study is compared with prior mammography from 2019. There are no interval mammograms for comparison. TECHNIQUE: Digital breast tomosynthesis is performed in both the craniocaudal and mediolateral oblique views along with computer-aided detection (CAD). Synthesized 2D images are generated from the tomosynthesis. A full lateral view of the right breast and spot compression of the upper outer quadrant of the right breast, the area of the patient's palpable concern, was performed. FINDINGS: The breasts are extremely dense, which lowers the sensitivity of mammography (ACR BI-RADS breast composition Category d). There are no significant masses, abnormal calcifications, or other abnormalities in either breast. There are no mammographic signs of malignancy. ULTRASOUND: CLINICAL INFORMATION: Patient complains of a lump in the upper outer quadrant of the right breast. COMPARISON: None TECHNIQUE: Targeted sonographic evaluation was performed using a high frequency linear transducer. Selected archived documentation. FINDINGS: RIGHT BREAST: Sonography of the 12:00 region of the right breast, the area of patient's palpable concern, was performed. In these locations there was no abnormality by ultrasound. US/US breast RT limited mamm only IMPRESSION: No mammographic evidence of malignancy in either breast. No mammographic or sonographic abnormalities in the area of patient's palpable concern, the upper outer quadrant of the right breast. OVERALL ASSESSMENT: Mammography: BI-RADS 1 - Negative Ultrasound: BI-RADS 1 - Negative RECOMMENDATION: 1. Patient should be managed based on the clinical impression. 2. Otherwise, routine annual screening mammography. Results were provided to the patient at time of visit by the technologist. This patient's information was entered into a reminder system with a target due date for their next mammogram.
== END 2023-08-29 14:26 | disposition home or self-care (01) ==
LOC: HO.MAMMO 14:25
PROVIDERS: PCP Internal Medicine; Visit Provider Internal Medicine
DX: N63.11 Unspecified lump in the right breast, upper outer quadrant (principal)
CPT/HCPCS: 76642; 77062; 77066

== ENCOUNTER → 2023-08-29 14:30 | Outpatient (BNV) | payer OTHER, SELFPAY | PROVIDERS: PCP Internal Medicine; Visit Provider Radiology Diagnostic Radiology | DX: N63.11 Unspecified lump in the right breast, upper outer quadrant (principal) | CPT/HCPCS: 76642; 77062; 77066 ==

== ENCOUNTER 2023-10-11 11:51 | Outpatient (AMB) | payer OTHER, SELFPAY ==
--- NOTE | 2023-10-11 11:53 | MHC.PC.OV ---
Vital Signs 10/11/23 11:55 Height 5 ft 1 in Weight 122 lb 8 oz BMI 23.1 BP 124/72 Blood Pressure Location Rt brachial Position Sitting Pulse 79 Pulse Source Pulse Oximeter Pulse Oximetry (%) 97 Oxygen Delivery Method Room Air Intake Visit Reasons: Back f/u Allergies lamotrigine [From LAMICTAL] Allergy (Severe, Verified 10/11/23 11:57) HIVES diclofenic Adverse Reaction (Uncoded 08/10/23 22:10) Abdominal Pain Medication List - Last Reconciled 10/11/23 by Tori Vines MD acetaminophen 1,000 mg (2 x 500 mg) PO Q6H PRN Tobacco use date assessed: 10/11/23 Dental Screening Dental Screen Date: 10/11/23 Did you have a dental visit in the last 12 months?: Yes Did you have a dental problem in the last 6 months where you did not have access to dental care?: No Was dental information given to patient?: Patient has dentist HPI Back f/u HPI Details Patient is a 38-year-old female came in today to discuss the recent surgery she had on 10/01/[address] 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 Patient is very reluctant to have that treatment She has an appointment coming up with radio oncologist to discuss it further I explained to patient that this is not a chemotherapy it is not going to be as if she is going to lose her here and will feel fatigued 4 days it is a local treatment with radiation. However if she does not want to have this treatment no one is going to force her. She is feeling better now. She said that she will discuss it further with the video oncologist and see how long is the recovery and what are the side effects. 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 11843 - PHQ-9 Billing: Patient declined-do not bill Source: Developed by Drs. Miguel Galindo, Ana Laura Alberts, Damian Hagen and colleagues, with an educational lincoln from [employer]. Thrive Questionnaire Date Thrive assessed: 03/10/21 AUDIT C Alcohol Use Questionnaire (AUDIT-C) 1. How often do you have a drink containing alcohol?: Monthly or less 2. How many drinks containing alcohol do you have on a typical day when you are drinking?: 1 or 2 3. How often do you have six or more drinks on one occasion?: Never Total Score: 1 Score Reviewed/Action Taken: Yes CATHY-7 AMB Questionnaire CATHY-7 Date CATHY - 7 assessed: 03/10/21 Source: Developed by Drs. Miguel Galindo, Ana Laura Alberts, Damian Hagen and colleagues, with an educational lincoln from [employer]. Review of Systems Const Denies chills and Denies fever(s) ENT Denies epistaxis and Denies nasal discharge Card Denies chest pain Resp Denies chest congestion, Denies cough and Denies hemoptysis GI Denies diarrhea and Denies nausea Skin/Breast Denies rash Neuro Reports no additional complaints Psych Reports no additional complaints Endo Reports no additional complaints Physical exam (Primary Care) Vital Signs: Last Vital Signs Pulse 79 10/11/23 11:55 BP 124/72 10/11/23 11:55 Pulse Ox 97 10/11/23 11:55 Oxygen Delivery Method Room Air 10/11/23 11:55 BMI result Body Mass Index 23.1 Tobacco/Smoking Status: Tobacco use Status Tobacco use date assessed 10/11/23 10/11/23 11:58 Patient Tobacco Use Status Former Tobacco user 10/11/23 11:54 Tobacco use type Cigarette 10/11/23 11:54 e-Cigarette/Vaping Use Never Used 10/11/23 11:54 Thrive Assessment: Date of Thrive Assessment Date Thrive assessed 03/10/21 10/11/23 11:54 Const General: cooperative, comfortable and no acute distress Orientation/consciousness: patient oriented x3 HENMT Head: Yes normocephalic Eyes General: appearance normal, both eyes and all related structures Neck Neck: Yes supple Resp Effort & Inspection: normal respiratory effort, no cough and no stridor Cardio Rhythm: regular rhythm Heart sounds: S1 normal heart sound present and S2 normal heart sound present Back/Spine/Pelvis Back/spine/pelvis image: 1. Wound is healing fine no signs of inflammation Skin General skin exam: turgor normal Neuro General: patient oriented x3, tone normal and moves all extremities Extrem Right lower extremity: no edema Left lower extremity: no edema Assessment and Plan Assessment & Plan (1) Intradural extramedullary spinal tumor: Code(s): D49.7 - Neoplasm of unspecified behavior of endocrine glands and other parts of nervous system Plan Patient is a 38-year-old female came in today to discuss the recent surgery she had on 10/01/[address] 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 Patient is very reluctant to have that treatment She has an appointment coming up with radio oncologist to discuss it further I explained to patient that this is not a chemotherapy it is not going to be as if she is going to lose her here and will feel fatigued 4 days it is a local treatment with radiation. However if she does not want to have this treatment no one is going to force her. She is feeling better now. She said that she will discuss it further with the video oncologist and see how long is the recovery and what are the side effects. Coding Level of Care Code Est Pt Level 4 (66123) Diagnoses Intradural extramedullary spinal tumor D49.7
[2023-10-11 11:55] VITALS: BP 124/72; PULSE 79; O2SAT 97; BMI 23.1
== END 2023-10-11 17:59 | disposition home or self-care (01) ==
PROVIDERS: PCP Internal Medicine; Visit Provider Internal Medicine
DX: D49.7 Neoplasm of unspecified behavior of endocrine glands and other parts of nervous system (principal)
CPT/HCPCS: 99214

== ENCOUNTER 2023-11-09 14:37 | Outpatient (REF) | payer OTHER, SELFPAY ==
--- NOTE | ~2023-11-09 | CT_ITS ---
EXAMINATION: CT ABDOMEN AND PELVIS WITHOUT CONTRAST CLINICAL INFORMATION: Renal calculus. COMPARISON: CT abdomen and pelvis dated 03/04/2011. TECHNIQUE: Multidetector volumetric imaging was performed from the superior aspect of the liver through the pubic symphysis. Sagittal and coronal reformatted images were obtained on the technologist's workstation. This CT examination was performed using dose optimization techniques as appropriate, variously including the following: *Automated exposure control *Adjustment of mA and/or kV according to patient size (this includes techniques or standardized protocols for targeted exams where dose is matched to indication/reason for exam; i.e. extremities or head) *Use of iterative reconstruction technique DLP: 289 mGy-cm FINDINGS: LUNG BASES: The visualized lung bases are unremarkable. LIVER, GALLBLADDER, AND BILIARY TREE: The liver is normal in size, shape, and attenuation. No focal hepatic lesion or biliary ductal dilatation is present. The gallbladder is unremarkable with no evidence of radiopaque gallstones, gallbladder wall thickening, or obvious pericholecystic inflammatory changes. PANCREAS: Unremarkable. SPLEEN: Unremarkable. ADRENAL GLANDS: Unremarkable. KIDNEYS AND URETERS: The kidneys are normal in size, shape, and attenuation. At the interpolar right kidney (4:178), a 7 mm nonobstructing calculus is seen. At the lower pole of the right kidney (4:248), a 3 mm nonobstructing calculus is seen. No left renal or bilateral ureteric calculi are seen, and there is no obstructive uropathy. No perinephric stranding. At the upper pole of the right kidney (3:18), 8 2.6 cm fluid attenuation cyst is seen, layering milk of calcium. This has a benign appearance, and no imaging follow-up is recommended. BLADDER: Unremarkable. GASTROINTESTINAL TRACT: The small and large bowel are unremarkable. The appendix is unremarkable. ABDOMINAL WALL: No significant hernia is appreciated. LYMPH NODES: There are shotty, nonpathologically enlarged bilateral inguinal lymph nodes. No sizable abdominopelvic lymphadenopathy is seen. VASCULAR: Unremarkable. PELVIC VISCERA: No abdominal aortic aneurysm or dissection is seen. There is a retroaortic left renal vein. OSSEOUS STRUCTURES: Unremarkable. CT/CT kidney stone IMPRESSION: There are nonobstructing right renal calculi. No left renal or bilateral ureteric calculus is seen. There is no obstructive uropathy. Fleischner guidelines were followed. Electronically signed by: Doe Samuel MD 12/06/2023 05:01 PM EDT RP
== END 2023-11-09 14:38 | disposition home or self-care (01) ==
LOC: HO.CT 14:37
PROVIDERS: PCP Internal Medicine; Visit Provider Nurse Practitioner Family
DX: N20.0 Calculus of kidney (principal)
CPT/HCPCS: 74176

== ENCOUNTER 2024-01-16 11:34 | Outpatient (AMB) | payer OTHER, SELFPAY ==
--- NOTE | 2024-01-16 11:36 | A.OFFVIS_ITS ---
Intake Visit Reasons: follow up/CT(set) Intake Note: Patient presents today for follow up on: kidney stone and ct scan results Imaging Completed: 11/09/23 Urology Medications: none Blood Thinner: none Ash Conveyor Operator Required: No Accompanied by: Self / Same As Patient Allergies lamotrigine [From LAMICTAL] Allergy (Severe, Verified 01/16/24 11:55) HIVES diclofenic Adverse Reaction (Uncoded 01/16/24 11:55) Abdominal Pain Medication List - Last Reconciled 01/16/24 by NABEEL Baltazar No Known Home Meds HPI Comments Details: Inna is a 38-year-old female patient of . She presents to the office today for follow-up of her nephrolithiasis. Of note, patient was seen approximately 5 months ago at which time a CT KUB was ordered for further assessment evaluation. These results reviewed with the patient today. The kidneys are normal in size, shape, and attenuation. A 7 mm nonobstructing calculus is seen. At the lower pole of the right kidney a 3 mm nonobstructing calculus is seen. No left renal or bilateral ureteral calculi are noted. There is no obstructive uropathy and no perinephric stranding. At the upper pole of the right kidney there is a renal cyst that requires no imaging follow-up per radiology report. The bladder is unremarkable. She reports since her last office visit here she has since had spinal surgery as she was noted to have a intradural extramedullary spinal tumor with Dr. Shanks. We discussed at length nephrolithiasis as well as further interventions to include surveillance monitoring verses surgical intervention. Risks and benefits of these interventions were discussed. She does note intermittent episodes of flank pain. She otherwise denies any bothersome urinary issues or concerns. She denies urinary urgency, urinary frequency, incontinence, nocturia, hematuria, dysuria, foul smelling urine, changes to urinary stream, fever, and or chills. She is happy with her current voiding parameters. In office urinalysis results reviewed with the patient today. Discussed potential causes of nephrolithiasis. She denies any previous history of nephrolithiasis. She otherwise offers no other issues or concerns at this time. 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 Cognitive needs: No Hearing needs: No Vision needs: Yes Review of Systems Const All systems reviewed & are unremarkable except as noted in HPI and below Physical Exam Const General: cooperative, healthy appearing, comfortable, no acute distress, well developed, alert and awake Orientation/consciousness: patient oriented x3 Limitations: no limitations HEENT Head: Yes normal to inspection, Yes normocephalic and Yes atraumatic Ears: hearing grossly normal bilaterally Eyes General: appearance normal, both eyes and all related structures Neck Neck: Yes normal visual inspection and Yes trachea midline Chest Chest palpation & inspection: normal inspection of the chest Resp Effort & Inspection: normal respiratory effort and able to speak in complete sentences Cardio Rate: regular rate GI Inspection: Yes normal to inspection General: Yes no CVA tenderness Back/Spine/Pelvis Back: no CVA tenderness Skin General skin exam: no rashes or lesions noted Neuro General: patient oriented x3 Extrem General: Yes normal to inspection Psych Appearance: grossly normal and well kempt Mental Status: mental status grossly normal Speech and movement: Normal speech and movement present and Clear speech present Affect: normal affect Attitude: cooperative Thought process: Normal thought process present Thought content: Normal thought content present Insight: Fair insight present (Psych) Judgement: Fair judgement present (Psych) Results AMB Urinalysis, Automated UA Leukoctes 0 April/uL Last Edit by Soto Pedroza on 01/16/24 12:02 UA Nitrite Last Edit by Reyesyce Yovany on 01/16/24 12:02 UA Urobilinogen 0.2 mg/dL Last Edit by maufaityce Yovany on 01/16/24 12:02 UA Protein 0 mg/dL Last Edit by maufaityce Anness on 01/16/24 12:02 UA pH 6.0 Last Edit by maufaityce Anness on 01/16/24 12:02 UA Blood 0 Lizandro/uL Last Edit by maufaityce Bress on 01/16/24 12:02 UA Specific Dickinson 1.010 Last Edit by maufaityce ProtoExchangejennyfer on 01/16/24 12:02 UA Ketone Last Edit by maufaityce ProtoExchangess on 01/16/24 12:02 UA Bilirubin 0 mg/dL Last Edit by maufaitycmirella Pedroza on 01/16/24 12:02 UA Glucose 0 mg/dL Last Edit by [employer] Barm[employer] Pedroza on 01/16/24 12:02 Results Reviewed Results Reviewed: Laboratory Last Values Urine pH (Auto) 6.0 01/16/24 11:41 Specific Dickinson (Auto) 1.010 01/16/24 11:41 Urine Protein (Auto) 0 mg/dL 01/16/24 11:41 Glucose (UA)(Auto) 0 mg/dL 01/16/24 11:41 Urine Blood (Auto) 0 Lizandro/uL 01/16/24 11:41 Urine Bilirubin (Auto) 0 mg/dL 01/16/24 11:41 Urine Urobilinogen (Auto) 0.2 mg/dL 01/16/24 11:41 Leukocyte Esterase (Auto) 0 April/uL 01/16/24 11:41 Date of Service: 11/09/23 EXAMINATION: CT ABDOMEN AND PELVIS WITHOUT CONTRAST FINDINGS: LUNG BASES: The visualized lung bases are unremarkable. LIVER, GALLBLADDER, AND BILIARY TREE: The liver is normal in size, shape, and attenuation. No focal hepatic lesion or biliary ductal dilatation is present. The gallbladder is unremarkable with no evidence of radiopaque gallstones, gallbladder wall thickening, or obvious pericholecystic inflammatory changes. PANCREAS: Unremarkable. SPLEEN: Unremarkable. ADRENAL GLANDS: Unremarkable. KIDNEYS AND URETERS: The kidneys are normal in size, shape, and attenuation. At the interpolar right kidney (4:178), a 7 mm nonobstructing calculus is seen. At the lower pole of the right kidney (4:248), a 3 mm nonobstructing calculus is seen. No left renal or bilateral ureteric calculi are seen, and there is no obstructive uropathy. No perinephric stranding. At the upper pole of the right kidney (3:18), 8 2.6 cm fluid attenuation cyst is seen, layering milk of calcium. This has a benign appearance, and no imaging follow-up is recommended. BLADDER: Unremarkable. GASTROINTESTINAL TRACT: The small and large bowel are unremarkable. The appendix is unremarkable. ABDOMINAL WALL: No significant hernia is appreciated. LYMPH NODES: There are shotty, nonpathologically enlarged bilateral inguinal lymph nodes. No sizable abdominopelvic lymphadenopathy is seen. VASCULAR: Unremarkable. PELVIC VISCERA: No abdominal aortic aneurysm or dissection is seen. There is a retroaortic left renal vein. OSSEOUS STRUCTURES: Unremarkable. IMPRESSION: There are nonobstructing right renal calculi. No left renal or bilateral ureteric calculus is seen. There is no obstructive uropathy. Assessment & Plan Assessment & Plan (1) Renal calculus, right: Code(s): N20.0 - Calculus of kidney Category: Medical Plan: Plan Extracorporeal Shock Wave Lithotripsy We discussed the nature of the decision and reasonable alternatives for performing the above surgery. Interventions include chemical dissolution, ESWL, ureteroscopy with laser lithotripsy and stent placement, PCNL. ? Options such as medical therapy were discussed. The relative uncertainties and benefits related to each alternate procedure were adequately discussed. General surgical risks including, but not limited to, pain, bleeding, infection, myocardial infarction, pulmonary embolus, deep vein thrombosis and cerebrovascular accident which may result in further hospitalization were discussed.? Full disclosure of the procedure as well as all major risks, benefits and complications were discussed including but not limited to risks of bleeding, injury to the kidney with hematoma or tahira-hematoma, failure to fragments stone, potential for ureteric obstruction from stone passage and need for secondary procedures.? There is a small long-term risk of hypertension and a question carlos of diabetes.? Success rate of fragmentation and passage is approximately 70- 75%.? This is compared to the risks and benefits for ureteroscopy which has a higher success rate but is a more invasive procedure. The success rate of the procedure was discussed. Success of the procedure in the short-term does not necessarily guarantee that long-term success will be maintained. Suitable follow up will need to be maintained. The patient showed understanding of the discussion as well as the typical recovery time, and the outpatient nature of this procedure. Opportunity was given for questions. Repeat-back protocol used to confirm understanding. They wish to proceed with Right sided ESWL. Plan In office urinalysis results reviewed with the patient today; as noted above. Recent CT KUB results reviewed with the patient today; as noted above. Discussed at length potential treatment options for nephrolithiasis to include ESWL verses surveillance monitoring; risks and benefits of these interventions were discussed. She currently denies any bothersome urinary issues or concerns. She reports be happy with her current voiding parameters. Discussed, educated, and stressed the importance of hydration relation to nephrolithiasis as well as overall health and well-being. Will schedule for right-sided ESWL as discussed. Follow-up per doctor's orders; or sooner with any issues, concerns, and or questions. Orders: Orders AMB Urinalysis Automated Today Z13.9 - Encounter for screening, unspecified Patient Instructions: The patient had an opportunity to ask questions regarding the treatment plan. All questions were answered. Physical exam, labs, and imaging were discussed and reviewed in detail. As well as risks, benefits, and discussion of treatment choices. No major barriers to understanding were identified. The patient expressed understanding and agreement with the above treatment plan. The patient was made aware they should contact our office by phone for worsening of their current condition, the appearance of new symptoms, or with any questions or concerns. Compliance is encouraged with any medications and follow up testing that is ordered. It is a privilege to be allowed the opportunity to participate in? your urological care.? Again, if you have any questions or concerns If you have any questions or concerns please do not hesitate to contact me. The office is [phone]. This note is constructed using voice recognition software. While every effort has been made to ensure accuracy command and control officer errors may have been included. Yours sincerely, NABEEL Baltazar Coding Level of Care Code Est Pt Level 4 (91127) Diagnoses Renal calculus, right N20.0
== END 2024-01-16 12:24 | disposition home or self-care (01) ==
PROVIDERS: PCP Internal Medicine; Visit Provider Nurse Practitioner Family
DX: Z13.9 Encounter for screening, unspecified (principal); N20.0 Calculus of kidney
CPT/HCPCS: 99214

== ENCOUNTER → 2024-01-16 11:34 | Outpatient (BNVA) | payer OTHER, SELFPAY | PROVIDERS: PCP Internal Medicine; Visit Provider Nurse Practitioner Family | DX: N20.0 Calculus of kidney (principal); N28.1 Cyst of kidney, acquired | CPT/HCPCS: 81003; 99212 ==

== ENCOUNTER 2024-02-07 09:57 | Day surgery (SDC) | payer OTHER, SELFPAY ==
[2024-02-05 13:38] VITALS: BMI 23.1
--- NOTE | 2024-02-06 10:20 | P.CONAN_ITS ---
Documented by User: Isabell Ayers NP 02/06/24 10:20 HPI - Anesthesia Eval Consult details Narrative: 38yo F for Right Lithotripsy ESW PMFSH Active Problems Active Problems: All Active Problems Intradural extramedullary spinal tumor (Acute) Breast lump on right side at 11 o'clock position (Acute) Renal calculus, right (Acute) Paresthesia of right leg (Acute) Weakness of right leg (Acute) Right lumbar radiculitis (Acute) Sacroiliitis (Acute) Left ear pain (Acute) Acute infective tonsillitis (Acute) Neck pain on left side (Acute) Sore throat (Acute) Right patellofemoral syndrome (Acute) Breakthrough bleeding associated with intrauterine device (IUD) (Acute) control counseling (Acute) Calcific tendinitis of right shoulder (Acute) Painful arc syndrome of right shoulder (Acute) Missed periods (Acute) IUD (intrauterine device) in place (Acute) Dysfunctional uterine bleeding (Acute) Change in skin mole (Acute) Work related injury (Acute) Shoulder pain, right (Acute) Injury of right upper extremity (Acute) Knee pain, right (Acute) Biceps tendinitis of right shoulder (Acute) Past Medical History Medical History Renal calculus Intradural extramedullary spinal tumor IUD (intrauterine device) in place Ovarian cyst Family History Family History Other Substance use disorder Surgical History Surgical History History of back surgery History of arthroscopic surgery of shoulder Hx of umbilical hernia repair Hx of section Social History Social History Housing: House Patient Tobacco Use Status: Former Tobacco user Tobacco use type: Cigarette Years Smoked: 13 years e-Cigarette/Vaping Use: Never Used Current occupational status: employed 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 Cognitive needs: No Hearing needs: No Vision needs: Yes Meds Allergies Allergy/AdvReac Type Severity Reaction Status Date / Time lamotrigine [From LAMICTAL] Allergy Severe HIVES Verified 01/16/24 11:55 Home Medications ?Medication ?Instructions ?Recorded ?Confirmed ?Last Taken ?Type No Known Home Meds 01/16/24 02/07/24 Unknown History Exam Height,Weight and Vital Signs: Height 5 ft 1 in Weight 55.565 kg Assessment and Plan Assessment Anesthesia Assessment: Chart Reviewed Documented by User: Carina Valenzuela MD 02/07/24 11:50 [facility] Past Medical History Medical History Renal calculus Intradural extramedullary spinal tumor IUD (intrauterine device) in place Ovarian cyst Family History Family History Other Substance use disorder Family history of problems with anesthesia: No Surgical History Surgical History History of back surgery History of arthroscopic surgery of shoulder Hx of umbilical hernia repair Hx of section History of Problems with Anesthesia: No Social History Social History Housing: House Patient Tobacco Use Status: Former Tobacco user Tobacco use type: Cigarette Years Smoked: 13 years e-Cigarette/Vaping Use: Never Used Current occupational status: employed 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 Cognitive needs: No Hearing needs: No Vision needs: Yes Meds Allergies Allergy/AdvReac Type Severity Reaction Status Date / Time lamotrigine [From LAMICTAL] Allergy Severe HIVES Verified 01/16/24 11:55 Home Medications ?Medication ?Instructions ?Recorded ?Confirmed ?Last Taken ?Type No Known Home Meds 01/16/24 02/07/24 Unknown History Exam Airway Mallampati Class: II (caps top front and through out) TM Dist: >3cm Neck ROM: Full Heart: rrr Lungs: cta Assessment and Plan Assessment Anesthesia Assessment: Anesthesia Plan Discussed Final Anesthetic Review Family History of Problems with Anesthesia: No History of Problems with Anesthesia: No NPO: Yes ASA Class: II Final Preanesthetic Review: No Changes in Pt Med Stat, Meds/Allgs Chart Reviewed and Consent Obtained/Reviewed Patient Risk: Low Procedure Risk: Low Anesthetic Plan Anesthetic Plan: GA Disposition: Standard PACU
[2024-02-07] VITALS (7 sets, daily range): BP systolic 89–121; BP diastolic 48–67; PULSE 46–62; RESP 15–16; TEMP 36.1–36.6; O2SAT 95–99; BMI 24.2
[2024-02-07 10:42] LABS: UPreg QC Valid YES; Urine Pregnancy NEGATIVE (NEGATIVE)
[2024-02-07] MEDS: Lactated Ringers 1,000 ML 100 ML IVCONT (12:03)
[2024-02-07] MEDS: Acetaminophen 1,000 MG/100 ML PIGGYBACK 400 MG IV (12:04)
--- NOTE | 2024-02-07 12:10 | MHC.SHP ---
Pre-Procedural Eval Section A - 24 Hr Update-Section A only Date of Service: 02/07/24 The patient is an INPATIENT: No The patient has been examined within 24 hours of the surgical procedure. The History & Physical has been completed within 30 days and I have reviewed it.: Yes Section B - Complete if H&P > 30 days Chief Complaint: Calculus of kidney Allergies: Allergies Allergy/AdvReac Type Severity Reaction Status Date / Time lamotrigine [From LAMICTAL] Allergy Severe HIVES Verified 01/16/24 11:55 Plan Diagnosis/Plan: Unchanged I have reviewed the history and physical and performed a pertinent physical examination on my patient. No changes have occurred unless specified. Right ESWL. Discussed risks to include but not limited to, blood in the urine, bruising to the skin, kidney hematoma, possible need for another procedure if a stone fragment obstructs the ureter while passing, possible need to repeat procedure if stone is not completely fragmented. Time Spent With Patient Time: Total time managing care of this patient today ____ minutes.
--- NOTE | 2024-02-07 12:55 | P.OP_ITS ---
Operative Note Operative Note Date of Service: 02/07/24 Narrative: PreOperative Diagnosis:? ? Right Renal stone Post Operative Diagnosis:?Right? Renal stone Procedure:?Right ESWL Surgeon:?Dr Iain Ruby Anesthesia:? General Indications for procedure: The patient understands there is a risk of bruising or hematoma to the kidney, infection, and stone migration following the procedure and subsequent intervention may be required.? - Imaging 7 mm stone right kidney Procedure: After informed consent was verified the patient was brought to the operating room and placed in a supine position.? Anesthesia was performed per protocol. Antibiotics confirmed. Safety pause time-out was performed. Imaging was dis played in the room and laterality confirmed. ESWL was performed.?The stone was visualized on both fluoroscopy and ultrasound.? Shockwave lithotripsy was performed, with a maximum rate of 180 hertz. After the first 250 shocks at a rate of 60 Hertz, a pause for 3 minutes was completed.? A total of 2500 shocks to a maximum of power of 17 with a maximum rate of 180 hertz.? Good fragmentation of the stone was appreciated. The patient tolerated the procedure well and was transferred to the recovery area upon completion. Complications: None
== END 2024-02-07 14:30 | disposition home or self-care (01) ==
PROVIDERS: Nurse Practitioner; PCP Internal Medicine; Visit Provider Urology
PROC: (CPT 50590; principal; 2024-02-07 11:30)
DX: N20.0 Calculus of kidney (principal); N28.1 Cyst of kidney, acquired; N83.209 Unspecified ovarian cyst, unspecified side; Z88.8 Allergy status to other drugs, medicaments and biological substances; Z98.890 Other specified postprocedural states; Z87.891 Personal history of nicotine dependence
CPT/HCPCS: 50590; 74018; 81025; J0131; J0690; J1940; J2003; J2704; J3010

== ENCOUNTER → 2024-02-07 09:57 | Outpatient (BNV) | payer OTHER, SELFPAY | PROVIDERS: PCP Internal Medicine; Visit Provider Urology | DX: N20.0 Calculus of kidney (principal) | CPT/HCPCS: 50590 ==

== ENCOUNTER 2024-03-06 12:35 | Outpatient (REF) | payer OTHER, SELFPAY | END 2024-03-06 12:36 | disposition home or self-care (01) | LOC: HO.US 12:35 | PROVIDERS: PCP Internal Medicine; Visit Provider Urology | DX: N20.0 Calculus of kidney (principal) | CPT/HCPCS: 74018; 76775 ==

== ENCOUNTER 2024-04-19 14:05 | Outpatient (AMB) | payer OTHER, SELFPAY ==
[2024-04-19 14:10] VITALS: BP 90/60; PULSE 64; TEMP 36.6; O2SAT 96; BMI 24.6
--- NOTE | 2024-04-19 14:10 | AM.OFFWIN_ITS ---
Intake Vital Signs 04/19/24 14:10 Height 5 ft 1 in Weight 130 lb BMI 24.6 BP 90/60 Blood Pressure Location Lt brachial Position Sitting Pulse 64 Pulse Source Pulse Oximeter Temp 97.8 F Temp Source Oral Pulse Oximetry (%) 96 Oxygen Delivery Method Room Air Intake Visit Reasons: EP-chest pain, rt side arm weakness Intake Note: Pt is here today c/o chest pain, and Rt arm weakness Patient Tobacco Use Status: Former Tobacco user Allergies lamotrigine [From LAMICTAL] Allergy (Severe, Verified 01/16/24 11:55) HIVES HPI EP-chest pain, rt side arm weakness HPI Details This is a 39-year-old female patient who presents to the walk-in clinic today with report of intermittent right-sided chest pain. She states that last night at home, she developed a deep/sharp right-sided pain in her upper chest that was intermittent. She denies any inciting events to this. She states that she took Aleve and went to sleep. When she woke up, she continued to have this pain, and also had a similar pain in her back. She states she also felt slightly weak on her right arm. She states she has mild weakness at baseline on that right side due to a previous neck injury/nerve damage. She denies any shortness of breath, palpitations, or recent illnesses. She denies any pain with palpation of area. 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 Cognitive needs: No Hearing needs: No Vision needs: Yes Review of Systems Const All systems reviewed & are unremarkable except as noted in HPI and below Physical Exam Vital Signs: Last Vital Signs Temp 97.8 F 04/19/24 14:10 Pulse 64 04/19/24 14:10 BP 90/60 04/19/24 14:10 Pulse Ox 96 04/19/24 14:10 Oxygen Delivery Method Room Air 04/19/24 14:10 BMI result Body Mass Index 24.6 Const General: cooperative, healthy appearing, comfortable and no acute distress Limitations: no limitations HEENT Head: Yes normal to inspection Ears: hearing grossly normal bilaterally General nose exam: Normal external nose present Face and sinus: Yes normal facial exam Mouth: Normal oral and palatal mucosa present Neck Neck: Yes no lymphadenopathy Resp Effort & Inspection: normal respiratory effort Auscultation: clear to auscultation bilaterally Cardio Jugular venous distension: no JVD Rate: regular rate Rhythm: regular rhythm Heart sounds: S1 normal heart sound present and S2 normal heart sound present Skin General skin exam: no rashes or lesions noted Neuro General: gait normal and moves all extremities Cranial nerves: Yes Bilaterally intact EOM present, Yes Normal facial strength present and Yes Midline tongue present Cognition (Neuro): normal cognition Motor exam (neuro): Pronator motor function not present, no tremor noted and Normal motor muscle tone present throughout Extrem General: Yes capillary refill normal and Yes no clubbing, cyanosis or edema Psych Appearance: grossly normal Mental Status: mental status grossly normal Speech and movement: Normal speech and movement present Assessment & Plan Assessment & Plan (1) Right-sided chest pain: Code(s): R07.9 - Chest pain, unspecified Plan: This patient has had intermittent deep right-sided chest pain since last evening. I can not reproduce it. No pain with palpation or with deep inspiration. She also reports feeling weaker on her right side. Her neuro assessment was within normal limits at this time. EKG was done in the office and showed sinus giuseppe 57 without abnormalities. Her physical exam was unremarkable. I am going to obtain a chest x-ray to r/o pna. CXR: Questionable acute airspace disease, right middle lung lobe. Discussed results with patient. Will start on abx. Patient agrees to plan Orders: Orders XR chest 2V Today R07.9 - Chest pain, unspecified Medications: New amoxicillin-pot clavulanate 875-125 mg 1 tab PO BID 7 days 14 tabs 0RF J18.9 - Pneumonia, unspecified organism Coding Level of Care Code Est Pt Level 4 (33845) Diagnoses Right-sided chest pain R07.9
== END 2024-04-19 14:45 | disposition home or self-care (01) ==
PROVIDERS: PCP Internal Medicine; Visit Provider Nurse Practitioner Family
DX: R07.9 Chest pain, unspecified (principal)

== ENCOUNTER 2024-04-19 14:05 | Outpatient (REF) | payer OTHER, SELFPAY ==
--- NOTE | ~2024-04-19 | XR_ITS ---
EXAMINATION: XR CHEST CLINICAL INFORMATION: R07.9 - Chest pain, unspecified COMPARISON: X-ray dated March 21, 2015 TECHNIQUE: 2 views of the chest were obtained. FINDINGS: Haziness in the right middle lower hemithorax. No pleural effusion. No pneumothorax. Cardiomediastinal silhouette is normal in size. Multilevel thoracic spondylosis. XR/XR chest 2V IMPRESSION: Questionable acute airspace disease, right middle lung lobe. Electronically signed by: Fritz Jackson MD 04/19/2024 03:04 PM YEYO
--- OUTSIDE RECORDS SUMMARY | 2024-04-19 17:17 | XMS_ITS ---
Author Name [facility] Organization Unknown Problems Problem Status Onset Date Problem Type Date of Resoluti on Source Arm pain, right active [facility]
== END 2024-04-19 14:06 | disposition home or self-care (01) ==
LOC: HO.HMGCX 14:05
PROVIDERS: PCP Internal Medicine; Visit Provider Nurse Practitioner Family
DX: R07.9 Chest pain, unspecified (principal)
CPT/HCPCS: 71046; 93005; 99212

== ENCOUNTER → 2024-04-19 14:46 | Outpatient (BNV) | payer OTHER, SELFPAY | PROVIDERS: PCP Internal Medicine; Visit Provider Radiology Diagnostic Radiology | DX: R07.9 Chest pain, unspecified (principal) | CPT/HCPCS: 71046 ==

== ENCOUNTER 2024-12-03 11:41 | Outpatient (AMB) | payer OTHER, SELFPAY ==
[2024-12-03 11:45] VITALS: BP 102/60; PULSE 107; TEMP 36.8; O2SAT 97; BMI 22.9
--- NOTE | 2024-12-03 11:46 | AM.OFFWIN_ITS ---
Intake Vital Signs 3 12/03/24 11:45 Height 5 ft 1 in Weight 121 lb BMI 22.9 BP 102/60 Blood Pressure Location Rt brachial Position Sitting Pulse 107 H Pulse Source Pulse Oximeter Temp 98.2 F Temp Source Oral Pulse Oximetry (%) 97 Intake Visit Reasons: ep lump in armpit red and sore last few days Patient Tobacco Use Status: Former Tobacco user Allergies lamotrigine (From LAMICTAL) Allergy (Severe, Verified 12/03/24 11:45) HIVES Medication List - Last Reconciled 12/03/24 by Tori Vines MD No Known Home Meds HPI ep lump in armpit red and sore last few days 2 HPI0 Details A week ago while taking a shower patient felt a lump left axilla which later on got painful She came in today for evaluation On examination patient have developed small area of induration located around a skin tag She does shave the area with the reason I am sending Augmentin for 7 days b.i.d. patient was instructed to take yogurt with it Keep an eye on the painful lump Return 25 of December with physical exam appointment and we will re-evaluated She has no fever no chills. 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 Cognitive needs: No Hearing needs: No Vision needs: Yes Review of Systems Const Denies chills and Denies fever(s) ENT Denies epistaxis and Denies nasal discharge Card Denies chest pain Resp Denies chest congestion, Denies cough and Denies hemoptysis GI Denies diarrhea and Denies nausea Skin/Breast Denies rash Neuro Reports no additional complaints Psych Reports no additional complaints Endo Reports no additional complaints Physical Exam Vital Signs: Last Vital Signs Temp 98.2 F 12/03/24 11:45 Pulse 107 H 12/03/24 11:45 BP 102/60 12/03/24 11:45 Pulse Ox 97 12/03/24 11:45 BMI result Body Mass Index 22.9 Const General: cooperative, comfortable and no acute distress Orientation/consciousness: patient oriented x3 HEENT Head: Yes normocephalic Eyes General: appearance normal, both eyes and all related structures Chest Chest/axillae images: 2 1. Small skin tag surrounded by indurated painful area 3 cm x 3 cm, no axillary lymph nodes felt Resp Effort & Inspection: normal respiratory effort, no cough and no stridor Skin General skin exam: turgor normal Neuro Other: Motor sensory intact General: patient oriented x3, tone normal and moves all extremities Psych Other: Normal effect, speech clear Assessment & Plan Assessment & Plan (1) Skin infection: Code(s): L08.9 - Local infection of the skin and subcutaneous tissue, unspecified Plan A week ago while taking a shower patient felt a lump left axilla which later on got painful She came in today for evaluation On examination patient have developed small area of induration located around a skin tag She does shave the area with the reason I am sending Augmentin for 7 days b.i.d. patient was instructed to take yogurt with it Keep an eye on the painful lump Return 25 of December with physical exam appointment and we will re-evaluated She has no fever no chills. There are no lumps axillary Medications: New 2 amoxicillin-pot clavulanate 875-125 mg 1 tab PO BID 14 tabs 0RF 7 days Coding Level of Care Code Est Pt Level 3 (23225) Diagnoses Skin infection L08.9
--- OUTSIDE RECORDS SUMMARY | 2024-12-03 13:14 | XMS_ITS | Clinical Summary ---
Author Organization [facility] Address [address] [place] [phone] Phone Care Team Providers Care Cook Helper Name Role Phone Cathi Rojas MD Primary Care Provider Pantera Davenport MD Unavailable Vernon Rizzo MD Unavailable Ronnie Shanks MD Unavailable [phone] Allergies Active Allergy Reactions Criticality Noted Date Comments Lamotrigine Rash Low 10/26/2023 Medications L.acid,casei,venkata nt,saliv/B.ani (PROBIOTIC FORMULA ORAL) Take by mouth. 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 Cancer Staging:Clinical stage from 09/30/2023:WHO G2- Signed by Pantera Davenport MD on 12/05/2023 Spondylosis of cervical spine with myelopathy Right knee pain 05/30/2019 Fatigue 07/03/2012 Atypical nevi 07/03/2012 Resolved Problems Problem Noted Date Diagnosed Date Resolved Date Overweight 12/05/2023 01/17/2024 Posttraumatic stress disorder 12/05/2023 01/17/2024 Anxiety disorder 12/05/2023 01/17/2024 Bipolar depression 08/07/2012 Tobacco abuse 07/03/2012 01/17/2024 Immunizations Immunization Administration Dates Next Due COVID-19 (Pre-01/23) Pfizer Vaccine, mRNA, PF 07/09/2020 Hepatitis A, ped/adol, 2 dose 12/01/1998, 999,06/25/1998 INFLUENZA, SPLIT VIRUS, TRIV ALENT W/ PRESERVATIVE IM 06/26/2013 Td (adult),2 Lf Tetanus Toxo id, PF, Adsorbed 06/25/1998 Tdap 05/01/2013 Social History Tobacco Use Types Packs/Day Years Used Date Smoking Tobacco: Never Smokeless Tobacco: Never Tobacco Cessation:Counseling Given: Not Answered Child or Family Care Answer Date Record ed Do you have problems with on e of the following making it difficult for you to work, study, or receive health care? No 10/19/2023 Education Answer Date Recorded Are you interested in help w ith more adult education (for example, completing high school, GED, job training, learning the Bulgarian language, technical skills, or developing parenting skills)? No 10/19/2023 Are you concerned about learning? Not on file 10/19/2023 No 10/19/2023 Yes 10/19/2023 Food Answer Date Recorded Within the past 6 months we worried whether our food would run out before we got money to buy more. Never True 10/19/2023 Within the past 6 months the food we bought just didn't last and we didn't have enough money to get more. Never True Residential Stability Answer Date Recor ded What is your housing situation today? I have nii sing 10/19/2023 How many times have you move d in the past 12 months? Zero (I did not move) 10/19/2023 Paying for Meds Answer Date Recorded Do you have trouble paying for medicines? No 10/19/2023 Paying Utility Bills Answer Date Record ed Do you have trouble paying your heating or elect ricity bill? No 10/19/2023 Transportation Answer Date Recorded Has the lack of transportati on kept you from medical appointments or from getting medications? No 10/19/2023 Unemployment Answer Date Recorded Are you currently unemployed or working on a part-time or temporary basis, and looking for work? Yes 10/19/2023 Digital Access Answer Date Recorded No 10/19/2023 Yes 10/19/2023 Do you have reliable internet access at home? Ye s 10/19/2023 Do you have a device (e.g., phone, tablet, computer) with a working camera? Yes 10/19/2023 Comments Unknown Sex and Gender Information Value Date Recorded Sex Assigned at Female 10/11/2023 2:46 PM EDT Legal Sex Female 9:12 PM EDT Gender Identity Female 10/11/2023 2:46 PM EDT Sexual Orientation Straight 10/11/2023 2: 46 PM EDT Last Filed Vital Signs Vital Sign Reading Time Taken Comments Blood Pressure 113/56 01/04/2024 10:22 AM EDT Pulse 69 01/04/2024 10:22 AM EDT Temperature 36.3 C (97.3 F) 01/04/2024 10:19 AM EDT Respiratory Rate 16 01/04/2024 10:19 AM EDT Oxygen Saturation 98% 01/04/2024 10:22 AM EDT Inhaled Oxygen Concentration - - Weight 59.6 kg (131 lb 4.8 oz) 01/04/2024 10:19 AM EDT Height 158.8 cm (5' 2.52 ) 01/04/2024 10:19 AM E DT Body Mass Index 23.62 01/04/2024 10:19 AM EDT Plan of Treatment Upcoming Encounters Date Type Department Care Team (Late st Contact Info) Description 07/30/2024 Procedure Pass [facility] Radiology Department [address] [place] [phone] 01/29/2025 11:30 AM EDT Ancillary Procedure [facility] Radiology Department [address] [place] [phone] Pantera Davenport MD [address] [place] [address]-[address] [place] [phone] [email or web address] 01/30/2025 9:00 AM EDT Appointment Department of Radiation Oncology [address] [place] [phone] Daja Leija PA-C [address] [place] [address] [email or web address] 01/31/2025 11:00 AM EDT Telemedicine - audio only [facility] Department of Neurosurgery [address] [place] [address] Celeste Fabian PA-C [address] [place] [address] [email or web address] Health Maintenance Due Date Last Done Comments HEPATITIS A VACCINES (2 of 2 - 2-dose series) 06/01/1999 12/01/1998, 07/29/1998, 06/25/1998 HEPATITIS C SCREENING 02/08/2004 HIV ONE-TIME SCREENING (18-6 5 YEARS) 02/08/2004 PNEUMOCOCCAL VACCINES (0-49 years) (1 of 2 - PCV) 2005 PAP SMEAR 2007 Adult Td,Tdap Booster 05/01/2023 05/01/2013 , 06/25/1998 DEPRESSION SCREENING 10/18/2024 10/19/2023 INFLUENZA VACCINE (#1) 2024 06/26/2013 COVID-19 VACCINE (2 - 2024-2 6 season) 2024 07/09/2020 SMOKING STATUS SCREENING (On ce After 26 Yrs) Completed 01/04/2024 HIB VACCINES Aged Out No longer eligi ble based on patient's age to complete this topic MENINGOCOCCAL VACCINES (ACWY) Aged Out No longer eligible based on patient's age to complete this topic MENINGOCOCCAL VACCINES (B) Aged Out N o longer eligible based on patient's age to complete this topic Medical Devices Not on file Insurance [facility] [place] [address] [place] [address] [place] [address] [place] [address] [address] [place] [address] [address] [place] [address] [facility] ACO [facility] ACO Care Teams Cook Helper Relationship Specialty Start Date End Date Cathi Rojas MD [address] [place] [address] [place] [phone] PCP - General Internal Medicine 04/26/19 Pantera Davenport MD [address] [place] [address] [place] [phone] [email or web address] 11/30/23 Vernon Rizzo MD [address] [place] [phone] [email or web address] Neurosurgery 12/05/23 Ronnie Shanks MD [address] [place] [address] Drive [address] [place] [address] Neurosurgery 12/05/23 Additional Source Comments The information contained in this document represents components of the legal health record. It is not the complete legal health record.[facility]
--- OUTSIDE RECORDS SUMMARY | 2024-12-03 13:14 | XMS_ITS | Encounter Summary ---
Author Organization [facility] Address [address] [place] [address] Phone Care Team Providers Care Photographic Equipment Inspector Name Role Phone Cathi Rojas MD Primary Care Provider Pantera Davenport MD Unavailable [phone] Vernon Rizzo MD Unavailable Ronnie Shanks MD Unavailable [phone] Encounter Details Date Type Department Care Team (Late st Contact Info) Description 01/17/2024 Procedure Pass MRI, [facility] [address] [place] [address] Social History Tobacco Use Types Packs/Day Years Used Date Smoking Tobacco: Never Smokeless Tobacco: Never Child or Family Care Answer Date Record ed Do you have problems with on e of the following making it difficult for you to work, study, or receive health care? No 10/19/2023 Education Answer Date Recorded Are you interested in help w ith more adult education (for example, completing high school, GED, job training, learning the Turkmen language, technical skills, or developing parenting skills)? [...] your housing situation today? I have nii kelly 10/19/2023 How many times have you move [...] Orientation Straight 10/11/2023 2: 46 PM EDT documented as of this encounter Plan of Treatment Upcoming Encounters Date Type Department Care Team (Late st Contact Info) Description 07/30/2024 Procedure Pass [facility] Radiology Department [address] [place] [address] 01/29/2025 11:30 AM EDT Ancillary Procedure [facility] Radiology Department [address] [place] [address] Pantera Davenport MD [address] [place] [address]-[address] [place] [address] [email or web address] 01/30/2025 9:00 AM EDT Appointment Department of Radiation Oncology [address] [place] [phone] Daja Leija PA-C [address] [place] [phone] [email or web address] 01/31/2025 11:00 AM EDT Telemedicine - audio only [facility] Department of Neurosurgery [address] [place] [address] Celeste Fabian PA-C [address] [place] [address] [email or web address] documented as of this encounter Visit Diagnoses Not on filedocumented in this encounter Care Teams Photographic Equipment Inspector Relationship Specialty Start Date End Date Cathi Rojas MD [address] [place] [address] Dr [facility]pp [facility] [place] [phone] PCP - General Internal Medicine 04/26/19 aPntera Davenport MD [address] [place] [address] Dr Rapp [address] [place] [phone] [email or web address] [email or web address] Oncology 11/30/23 Vernon Rizzo MD [address] [place] [address] [email or web address] Neurosurgery 12/05/23 Ronnie Shanks MD [address] [place] [address] Drive [address] [place] [address] Neurosurgery 12/05/23 documented as of this encounter Additional Source Comments The information contained in this document represents components of the legal health record. It is not the complete legal health record.[facility]
--- OUTSIDE RECORDS SUMMARY | 2024-12-03 13:14 | XMS_ITS | Encounter Summary ---
Author Organization [facility] Address [address] [place] [address] Phone Care Team Providers Care Support Assistant Name Role Phone Cathi Rojas MD Primary Care Provider Pantera Davenport MD Unavailable [phone] Vernon Rizzo MD Unavailable Ronnie Shanks MD Unavailable [phone] Encounter Details Date Type Department Care Team (Late st Contact Info) Description 01/17/2024 Procedure Pass MRI, [facility] Imaging [address] [place] [id number] Social History Tobacco Use Types Packs/Day Years [...] high school, GED, job training, learning the [place] language, technical skills, or developing parenting skills)? [...] Info) Description 07/30/2024 Procedure Pass [facility] and [facility]'s Radiology Department [address] [place] [address] 01/29/2025 11:30 AM EDT Ancillary Procedure [facility] and [facility]'s Radiology Department [address] [place] [address] Pantera Davenport MD [address] [place] [address]-[address] [place] [address] [email or web address] 01/30/2025 9:00 AM EDT Appointment Department of Radiation Oncology [address] [place] [address] Daja Leija PA-C [address] [place] [phone] [email or web address] 01/31/2025 11:00 AM EDT Telemedicine - audio only [facility] Department of Neurosurgery [address] [place] [address] Celeste Fabian PA-C [address] [place] [address] [email or web address] documented as of this encounter Visit Diagnoses Not on filedocumented in this encounter Care Teams Support Assistant Relationship Specialty Start Date End Date Cathi Rojas MD [address] [place] [address] Dr Rapp [facility] [place] [phone] PCP - General Internal Medicine 04/26/19 Pantera Davenport MD [address] [place] [address] Dr Rapp [address] [place] [address] [phone] [email or web address] Radiation Oncology 11/30/23 Vernon Rizzo MD [address] [place] [address] [email or web address] Neurosurgery 12/05/23 Ronnie Shanks MD [address] [place] [address] Drive [address] [place] [address] Neurosurgery 12/05/23 documented as of this encounter Additional Source Comments The information contained in this document represents components of the legal health record. It is not the complete legal health record.[facility]
--- OUTSIDE RECORDS SUMMARY | 2024-12-03 13:14 | XMS_ITS | Encounter Summary ---
Author Organization [facility] Address [address] [place] [address] Care Team Providers Care Family Life Counselor Name Role Phone Pcp, No Primary Care Provider Unavailabl e Encounter Details Date Type Department Care Team (Late st Contact Info) Description 03/08/2024 Scanned Document [facility] [address] [phone] Bertha Soriano [address] [facility] [address] [place] [address] Social History Tobacco Use Types Packs/Day Years Used Date Smoking Tobacco: Never Assessed Comments Unknown Sex and Gender Information Value Date Recorded Sex Assigned at Female 11/02/2022 10:44 AM EDT Legal Sex Female 6:23 PM EST Gender Identity Female 11/02/2022 10:44 AM EDT Sexual Orientation Choose not to disclose 2022 10:45 AM EDT documented as of this encounter Plan of Treatment Not on file documented as of this encounter Visit Diagnoses Not on filedocumented in this encounter Care Teams Family Life Counselor Relationship Specialty Start Date End Date Pcp, No PCP - General General Medicine 11/02/22 documented as of this encounter
--- OUTSIDE RECORDS SUMMARY | 2024-12-03 13:14 | XMS_ITS | Encounter Summary ---
Author Organization [facility] Address [address] [place] [address] Phone Care Team Providers Care Community Program Assistant Name Role Phone Cathi Rojas MD Primary Care Provider Pantera Davenport MD Unavailable [phone] Vernon Rizzo MD Unavailable Ronnie Shanks MD Unavailable [phone] Encounter Details Date Type Department Care Team (Late st Contact Info) Description 01/17/2024 Procedure Pass MRI, [facility] Imaging [address] [place] [address] Social History Tobacco Use Types Packs/Day Years [...] high school, GED, job training, learning the Pakistani language, technical skills, or developing parenting skills)? [...] Description 07/30/2024 Procedure Pass [facility] and [facility]'s Radiology Department [address] [place] [address] 01/29/2025 11:30 AM EDT Ancillary Procedure [facility] and [facility]'s Radiology Department [address] [place] [address] Pantera Davenport MD [address] [place] [address]-B-[address] [place] [address] [email or web address] 01/30/2025 9:00 AM EDT Appointment Department of Radiation Oncology [address] [place] [address] Daja Leija PA-C [address] [place] [phone] [email or web address] 01/31/2025 11:00 AM EDT Telemedicine - audio only [facility] Department of Neurosurgery [address] [place] [address] Celeste Fabian PA-C [address] [place] [address] [email or web address] documented as of this encounter Visit Diagnoses Not on filedocumented in this encounter Care Teams Community Program Assistant Relationship Specialty Start Date End Date Cathi Rojas MD [address] [place] [address] Dr Rapp [facility] [place] [phone] PCP - General Internal Medicine 04/26/19 Pantera Davenport MD [address] [place] [address] Dr Rapp [address] [place] [address] [phone] [email or web address] Radiation Oncology 11/30/23 Vernon Rizzo MD [address] [place] [address] [email or web address] Neurosurgery 12/05/23 Ronnie Shanks MD [address] [place] [address] Drive [address] [place] [address] Neurosurgery 12/05/23 documented as of this encounter Additional Source Comments The information contained in this document represents components of the legal health record. It is not the complete legal health record.[facility]
--- OUTSIDE RECORDS SUMMARY | 2024-12-03 13:14 | XMS_ITS ---
Author Name [facility] Unknown Problems Problem Status Onset Date Problem Type Date of Resoluti on Source Arm pain, right active EncounterDiagnosisAct HHCCT Encounters Encounter Type Encounter Reason Primary Diagnosis Location Date Ambulatory Pain in right arm Pain in right arm [facility] 03/22/2024 [facility] 02/02/2024 Ambulatory Cervicalgia [facility] 11/14/2023 Ambulatory Cervicalgia [facility] 05/05/2023 Ambulatory Cervicalgia Cerv[facility] 05/05/2023 Ambulatory Healcerion 02/14/2023 Ambulatory [facility] 11/02/2022 Care Team Organization Name Specialty Phone Email Start Date End Da te TM PCP,No Primary Care 02/14/2023 06/19/2024 TM 11/02/2022 06/19/2024 TM 11/02/2022 02/14/2023 TM NO PCP Primary Care 11/02/2022 11/02/2022
--- OUTSIDE RECORDS SUMMARY | 2024-12-03 13:14 | XMS_ITS | Encounter Summary ---
Author Organization [facility] Address [address] [place] [address] Phone Care Team Providers Care Radiology Rn Name Role Phone Cathi Rojas MD Primary Care Provider Pantera Davenport MD Unavailable [phone] Vernon Rizzo MD Unavailable Ronnie Shanks MD Unavailable [phone] Encounter Details Date Type Department Care Team (Late st Contact Info) Description 01/17/2024 Procedure Pass MRI, [facility] Imaging [address] [place] [address] Social History Tobacco Use Types Packs/Day Years [...] high school, GED, job training, learning the [place] language, technical skills, or developing parenting skills)? [...] Info) Description 07/30/2024 Procedure Pass [facility] and [facility]'s Radiology Department [address] [place] [address] 01/29/2025 11:30 AM EDT Ancillary Procedure [facility] and [facility]'s Radiology Department [address] [place] [address] Pantera Davenport MD [address] [place] [address]-B-[address] [place] [phone] [email or web address] 01/30/2025 9:00 AM EDT Appointment Department of Radiation Oncology [address] [place] [address] Daja Leija PA-C [address] [place] [phone] [email or web address] 01/31/2025 11:00 AM EDT Telemedicine - audio only [facility] Department of Neurosurgery [address] [place] [address] Celeste Fabian PA-C [address] [place] [address] [email or web address] documented as of this encounter Visit Diagnoses Not on filedocumented in this encounter Care Teams Radiology Rn Relationship Specialty Start Date End Date Cathi Rojas MD [address] [place] [address] Dr Rapp [facility] [place] [phone] PCP - General Internal Medicine 04/26/19 Pantera Davenport MD [address] [place] [address] Dr Rapp [address] [place] [address] [phone] [email or web address] Radiation Oncology 11/30/23 Vernon Rizzo MD [address] [place] [address] [email or web address] Neurosurgery 12/05/23 Ronnie Shanks MD [address] [place] [address] Drive [address] [place] [address] Neurosurgery 12/05/23 documented as of this encounter Additional Source Comments The information contained in this document represents components of the legal health record. It is not the complete legal health record.[facility]
--- OUTSIDE RECORDS SUMMARY | 2024-12-03 13:14 | XMS_ITS | Clinical Summary ---
Author Organization [facility] Address [address] [place] [address] Care Team Providers Care Fruit Or Nut Farm Worker Name Role Phone Unavailable Primary Care Provider Unavailabl e Social History Tobacco Use Types Packs/Day Years Used Date Smoking Tobacco: Never Assessed Comments Unknown Sex and Gender Information Value Date Recorded Sex Assigned at Not on file Legal Sex Female 12:06 PM EST Gender Identity Not on file Sexual Orientation Not on file Plan of Treatment Health Maintenance Due Date Last Done Comments Hepatitis A Vaccines (2 of 2 - 2-dose series) 06/01/1999 12/01/1998, 07/29/1998, 06/25/1998 Hepatitis B Vaccines (1 of 3 - 19+ 3-dose series) 2005 Cervical Cancer Screening: P ap Smear 2007 DTaP,Tdap,and Td Vaccines (2 - Td or Tdap) 06/25/2008 06/25/1998 HIV Screening 03/01/2022 Hepatitis C Screening 03/01/2022 Social Influencers of Health Screening 03/01/2022 COVID-19 Vaccine (1 - 2023-2 5 season) 2023 Depression Screening 04/03/2024 Influenza Vaccine (#1) 2024 HIB Vaccines Aged Out No longer eligi ble based on patient's age to complete this topic HPV Vaccines Aged Out No longer eligi ble based on patient's age to complete this topic IPV Vaccines Aged Out No longer eligi ble based on patient's age to complete this topic MMR Vaccines Aged Out No longer eligi ble based on patient's age to complete this topic Meningococcal ACWY Vaccine Aged Out N o longer eligible based on patient's age to complete this topic Meningococcal B Vaccine Aged Out No l onger eligible based on patient's age to complete this topic Pneumococcal Vaccine: Pediatrics (0 to 5 Years) and At-Risk Patients (6 to 49 Years) Aged Out No longer eligible b ased on patient's age to complete this topic RSV Immunization Patients Under 20 months Aged Out No longer eligible b ased on patient's age to complete this topic Varicella Vaccines Aged Out No longer eligible based on patient's age to complete this topic
--- OUTSIDE RECORDS SUMMARY | 2024-12-03 13:14 | XMS_ITS | Clinical Summary ---
Author Organization [facility] Address [address] [place] [address] Care Team Providers Care Electricity Trading Analyst Name Role Phone Pcp, No Primary Care Provider Unavailabl e Social History Tobacco Use Types Packs/Day Years Used Date Smoking Tobacco: Never Assessed Comments Unknown Sex and Gender Information Value Date Recorded Sex Assigned at Female 11/02/2022 10:44 AM EDT Legal Sex Female 6:23 PM EST Gender Identity Female 11/02/2022 10:44 AM EDT Sexual Orientation Choose not to disclose 2022 10:45 AM EDT Plan of Treatment Health Maintenance Due Date Last Done Comments Hepatitis C Virus Screening 1986 HIV Screening 1999 DTaP/Tdap/Td Vaccines (1 - Tdap) 2005 Hepatitis B Vaccines (1 of 3 - 19+ 3-dose series) 2005 Pap Smear (Ages 21-65) 2007 HPV Vaccines (1 - 3-dose SCD M series) 2013 COVID-19 Vaccine (2 - 2023-2 5 season) 2023 07/09/2020 Influenza Vaccine 11/01/2024 06/26/2013 Pneumococcal Vaccine: Pediat tanisha (0-5 Years) and At-Risk Patients (6 to 49 Years) Aged Out No longer eligible b ased on patient's age to complete this topic Insurance [facility] [employer] [facility] (AUTO/LIABILITY) [facility] Care Teams Electricity Trading Analyst Relationship Specialty Start Date End Date Pcp, No PCP - General General Medicine 11/02/22
--- OUTSIDE RECORDS SUMMARY | 2024-12-03 13:14 | XMS_ITS | Encounter Summary ---
Author Organization [facility] Address [address] [place] [address] Phone Care Team Providers Care House Designer Name Role Phone Cathi Rojas MD Primary Care Provider Pantera Davenport MD Unavailable [phone] Vernon Rizzo MD Unavailable Ronnie Shanks MD Unavailable [phone] Encounter Details Date Type Department Care Team (Late st Contact Info) Description 01/03/2024 Procedure Pass [facility] Radiology Department [address] [place] [address] Social History Tobacco Use Types Packs/Day Years [...] high school, GED, job training, learning the [place] language, technical skills, or developing parenting skills)? [...] Info) Description 07/30/2024 Procedure Pass [facility] and [facility]'s Radiology Department [address] [place] [address] 01/29/2025 11:30 AM EDT Ancillary Procedure [facility] and [facility]'s Radiology Department [address] [place] [address] Pantera Davenport MD [address] [place] [address]-B-[address] [place] [phone] [email or web address] 01/30/2025 9:00 AM EDT Appointment Department of Radiation Oncology [address] [place] [address] Daja Leija PA-C [address] [place] [phone] [email or web address] 01/31/2025 11:00 AM EDT Telemedicine - audio only [facility] Department of Neurosurgery [address] [place] [address] Celeste Fabian PA-C [address] [place] [address] [email or web address] documented as of this encounter Visit Diagnoses Not on filedocumented in this encounter Care Teams House Designer Relationship Specialty Start Date End Date Cathi Rojas MD [address] [place] [address] Dr R[address] [place] [address] [phone] PCP - General Internal Medicine 04/26/19 Pantera Davenport MD [address] [place] [address] [place] [phone] [email or web address] Radiation Oncology 11/30/23 Vernon Rizzo MD [address] [place] [address] [email or web address] Neurosurgery 12/05/23 Ronnie Shanks MD [address] [place] [address] Drive [address] [place] [address] Neurosurgery 12/05/23 documented as of this encounter Additional Source Comments The information contained in this document represents components of the legal health record. It is not the complete legal health record.[facility]
== END 2024-12-03 12:02 | disposition home or self-care (01) ==
PROVIDERS: PCP Internal Medicine; Visit Provider Internal Medicine
DX: L08.9 Local infection of the skin and subcutaneous tissue, unspecified (principal)

== ENCOUNTER → 2024-12-03 11:41 | Outpatient (BNVA) | payer OTHER, SELFPAY | PROVIDERS: PCP Internal Medicine; Visit Provider Internal Medicine | DX: L91.8 Other hypertrophic disorders of the skin (principal); L08.9 Local infection of the skin and subcutaneous tissue, unspecified | CPT/HCPCS: 99212 ==